=== PATIENT | male | born 1940 | race Caucasian/White ===

== ENCOUNTER 2017-08-22 17:45 | Inpatient (IN) | payer MEDICARE, OTHER ==
[~2017-08-22] VITALS: Ht 180.3 cm; Wt 77.9 kg
[~2017-08-22 17:45] MED LIST: 0.9 % SODIUM CHLORIDE 10 ML VIAL ONE; epiNEPHrine 0.1mg/ml 10ml syringe ONE; etomidate 2mg/ml inj. ONE; rocuronium 10mg/ml inj IV ONE; sodium bicarbonate (8.4%) 1 mEq/ml syringe ONE
[2017-08-22 18:35] LABS: BASOPHILS % (AUTO) 0.2 % (0-1); EOSINOPHILS % (AUTO) 0.3 % (0-6); HEMATOCRIT 45.8 % (42.0-52.0); HEMOGLOBIN 15.2 g/dl (14.0-17.9); LYMPHOCYTES # (AUTO) 1.4 X10'3 (1.1-4.8); LYMPHOCYTES % (AUTO) 16.8 % (21-51); MEAN CORPUSCULAR HGB CONC 33.3 % (33.0-36.5); MEAN CORPUSCULAR VOLUME 90.1 FL (78-98); MEAN PLATELET VOLUME 8.1 FL (7.4-10.4); MONOCYTES # (AUTO) 0.6 X10'3 (0-0.9); MONOCYTES % (AUTO) 6.8 % (2-12); NEUTROPHILS # (AUTO) 6.3 X10'3 (1.8-7.7); NEUTROPHILS % (AUTO) 75.9 % (42-75); PLATELET COUNT 284 X10'3 (140-440); RED BLOOD COUNT 5.08 X10'6 (4.70-6.10); RED CELL DISTRIBUTION WIDTH 15.7 % (11.5-14.5); WHITE BLOOD COUNT 8.3 X10'3 (4.5-11.0)
[2017-08-22] MEDS ORDERED: normal saline 1000ML IV soln IVB ONE ×2 (18:35→20:00)
[2017-08-22 18:47] LABS: PARTIAL THROMBOPLASTIN TIME 27 SECONDS (22-32); PROTHROMBIN TIME 10.5 SECONDS (9.0-12.0)
[2017-08-22 18:58] LABS: ALANINE AMINOTRANSFERASE 44 U/L (12-78); ALBUMIN 3.7 G/DL (3.4-5.0); ALKALINE PHOSPHATASE 72 IU/L (46-116); ANION GAP 6 (8-16); ASPARTATE AMINO TRANSFERASE 18 U/L (10-37); BILIRUBIN,TOTAL 0.4 MG/DL (0.1-1.0); BLOOD UREA NITROGEN 17 MG/DL (7-18); BUN/CREATININE RATIO 18.3 (5.4-32.0); CALCIUM 9.7 MG/DL (8.5-10.1); CHLORIDE 98 MMOL/L (99-107); CREATININE 0.93 MG/DL (0.60-1.10); GLUCOSE 126 MG/DL (70-104); POTASSIUM 4.1 MMOL/L (3.5-5.1); SODIUM 143 MMOL/L (135-145); TOTAL CARBON DIOXIDE 39.5 MMOL/L (24-32); TOTAL PROTEIN 7.5 G/DL (6.4-8.2); eGFR 79 ML/MIN
[2017-08-22] MEDS ORDERED: UMEC62.5 INH (20:23)
[2017-08-22] MEDS ORDERED: CITA20TA11 PO (20:23)
[2017-08-22] MEDS ORDERED: VALS1TAB77 PO (20:23)
[2017-08-22] MEDS ORDERED: CARV-50 PO (20:23)
[2017-08-22] MEDS ORDERED: DUTA0.5C40 PO (20:25)
[2017-08-22] MEDS ORDERED: RIVA20TA PO (20:25)
[2017-08-22] MEDS ORDERED: FLUT1AER INH (20:25)
[2017-08-22] MEDS ORDERED: ATOR40TA3 PO (20:25)
[2017-08-22 20:31] LABS: D-DIMER < 0.19 MG/L FEU (0-0.50)
[2017-08-22] MEDS ORDERED: ondansetron/PF 4mg/2ml inj IV PRN (22:50)
[2017-08-22] MEDS ORDERED: haloperidol 5mg tablet PO PRN (22:50)
[2017-08-22] MEDS ORDERED: magnesium hydroxide 30ml (MOM) UD suspension PO PRN (22:50)
[2017-08-22] MEDS ORDERED: magnesium 2GM in 50ml NS 50 ML IV PRN (22:50)
[2017-08-22] MEDS ORDERED: ipratropium/albuterol 3ml nebule NEB PRN (22:50)
[2017-08-22] MEDS ORDERED: mag hydrox/Alum hydrox/simeth 30ml oral suspension PO PRN (22:50)
[2017-08-22] MEDS ORDERED: potassium Cl 20 mEq SR tablet PO PRN ×2 (22:50)
[2017-08-22] MEDS ORDERED: magnesium 4gm in 100ml NS 100 ML IV PRN (22:50)
[2017-08-22] MEDS ORDERED: acetaminophen 325mg tablet PO PRN (22:50)
[2017-08-22] MEDS ORDERED: haloperidol lactate 5mg/ml inj IM PRN (22:50)
[2017-08-22] MEDS ORDERED: HYDROcodone/acetaminophen 10/325mg tab PO PRN (22:50)
[2017-08-22] MEDS ORDERED: LORazepam 1 MG tablet PO PRN (22:50)
[2017-08-22] MEDS ORDERED: magnesium Cl slow-release 64mg tablet PO PRN (22:50)
[2017-08-22] MEDS ORDERED: albuterol 2.5 MG/3 ML nebule NEB PRN (22:50)
[2017-08-22] MEDS ORDERED: potassium Cl 40MEQ/NS 500ml 500 ML IV PRN (22:50)
[2017-08-22] MEDS ORDERED: dextrose 50%-water 50ml dispensing syringe IV PRN (22:50)
[2017-08-22] MEDS ORDERED: LORazepam 2 mg/ml vial IV PRN (22:50)
[2017-08-22 23:16] LABS: CHOL/HDL RATIO 2.5 (0.00-4.99); CHOLESTEROL 171 MG/DL (0-200); HDL CHOLESTEROL 69 MG/DL (35-60); LDL CHOLESTEROL 79 MG/DL (50-100); TRIGLYCERIDES 171 MG/DL (20-135)
[2017-08-22] MEDS ORDERED: thiamine 100mg/ml 2ml inj. IV ONE (23:19)
[2017-08-22] MEDS: normal saline 1000ml 1,000 ML IV SCH (23:26)
[2017-08-23 07:15] LABS: BASOPHILS % (AUTO) 0.6 % (0-1); EOSINOPHILS # (AUTO) 0.1 X10'3 (0-0.9); EOSINOPHILS % (AUTO) 1.4 % (0-6); HEMATOCRIT 37.9 % (42.0-52.0); HEMOGLOBIN 12.6 g/dl (14.0-17.9); LYMPHOCYTES # (AUTO) 1.9 X10'3 (1.1-4.8); LYMPHOCYTES % (AUTO) 26.3 % (21-51); MEAN CORPUSCULAR HEMOGLOBIN 30.3 PG (27.0-31.0); MEAN CORPUSCULAR HGB CONC 33.4 % (33.0-36.5); MEAN CORPUSCULAR VOLUME 90.6 FL (78-98); MEAN PLATELET VOLUME 8.5 FL (7.4-10.4); MONOCYTES # (AUTO) 0.5 X10'3 (0-0.9); MONOCYTES % (AUTO) 7.3 % (2-12); NEUTROPHILS # (AUTO) 4.6 X10'3 (1.8-7.7); NEUTROPHILS % (AUTO) 64.4 % (42-75); PLATELET COUNT 148 X10'3 (140-440); RED BLOOD COUNT 4.18 X10'6 (4.70-6.10); RED CELL DISTRIBUTION WIDTH 15.1 % (11.5-14.5); WHITE BLOOD COUNT 7.1 X10'3 (4.5-11.0)
[2017-08-23] MEDS ORDERED: non-formulary drug (Valsartan/Hydrochlorothiazide (Valsartan-Hctz 160-25 Mg Tab) 1 TAB) PO SCH (08:00)
[2017-08-23] MEDS: citalopram 20mg tablet PO SCH (09:09)
[2017-08-23] MEDS: carVEDilol 3.125mg tablet PO SCH ×2 (09:09→20:00)
[2017-08-23] MEDS: HYDROchlorothiazide 25mg tablet PO SCH (09:09)
[2017-08-23] MEDS: K and/or MAG REPLACEMENT MC SCH (09:09)
[2017-08-23 09:36] LABS: ALBUMIN 3.2 G/DL (3.4-5.0); ANION GAP 4 (8-16); BLOOD UREA NITROGEN 13 MG/DL (7-18); BUN/CREATININE RATIO 14.9 (5.4-32.0); CALCIUM 8.6 MG/DL (8.5-10.1); CHLORIDE 103 MMOL/L (99-107); CHOL/HDL RATIO 2.3 (0.00-4.99); CHOLESTEROL 176 MG/DL (0-200); CREATININE 0.87 MG/DL (0.60-1.10); GLUCOSE 157 MG/DL (70-104); HDL CHOLESTEROL 77 MG/DL (35-60); LDL CHOLESTEROL 83 MG/DL (50-100); MAGNESIUM 1.8 MG/DL (1.5-2.4); POTASSIUM 3.5 MMOL/L (3.5-5.1); SODIUM 145 MMOL/L (135-145); TOTAL CARBON DIOXIDE 38.4 MMOL/L (24-32); TRIGLYCERIDES 118 MG/DL (20-135); eGFR 85 ML/MIN
[2017-08-23] MEDS: normal saline 1000ml 1,000 ML IV SCH ×2 (10:24→17:04)
[2017-08-23 13:20] VITALS: BP 121/79
[2017-08-23] MEDS: cloNIDine 0.1 mg tablet PO SCH ×2 (17:54→21:00)
[2017-08-23 18:00] VITALS: BP 196/110
[2017-08-23] MEDS ORDERED: flumazenil 0.1 mg/ml inj. IV ONE ×3 (18:57→19:10)
[2017-08-23] MEDS ORDERED: propofol 1000mg/100ml bottle 100 ML IV ONE ×3 (18:58→19:10)
[2017-08-23] MEDS ORDERED: propofol 1000mg/100ml bottle 100 ML IV SCH (19:00)
[2017-08-23 19:26] LABS: BASOPHILS # (AUTO) 0.1 X10'3 (0-0.2); BASOPHILS % (AUTO) 0.7 % (0-1); EOSINOPHILS # (AUTO) 0.2 X10'3 (0-0.9); EOSINOPHILS % (AUTO) 2.3 % (0-6); HEMATOCRIT 43.5 % (42.0-52.0); HEMOGLOBIN 14.3 g/dl (14.0-17.9); LYMPHOCYTES # (AUTO) 3.1 X10'3 (1.1-4.8); LYMPHOCYTES % (AUTO) 29.6 % (21-51); MEAN CORPUSCULAR HEMOGLOBIN 30.1 PG (27.0-31.0); MEAN CORPUSCULAR HGB CONC 32.9 % (33.0-36.5); MEAN CORPUSCULAR VOLUME 91.4 FL (78-98); MEAN PLATELET VOLUME 7.7 FL (7.4-10.4); MONOCYTES # (AUTO) 0.8 X10'3 (0-0.9); MONOCYTES % (AUTO) 7.5 % (2-12); NEUTROPHILS # (AUTO) 6.2 X10'3 (1.8-7.7); NEUTROPHILS % (AUTO) 59.9 % (42-75); PLATELET COUNT 235 X10'3 (140-440); RED BLOOD COUNT 4.76 X10'6 (4.70-6.10); RED CELL DISTRIBUTION WIDTH 15.5 % (11.5-14.5); WHITE BLOOD COUNT 10.3 X10'3 (4.5-11.0)
[2017-08-23 19:47] LABS: ALANINE AMINOTRANSFERASE 38 U/L (12-78); ALBUMIN 3.4 G/DL (3.4-5.0); ALKALINE PHOSPHATASE 64 IU/L (46-116); ANION GAP 6 (8-16); ASPARTATE AMINO TRANSFERASE 20 U/L (10-37); BILIRUBIN,TOTAL 0.6 MG/DL (0.1-1.0); BLOOD UREA NITROGEN 14 MG/DL (7-18); BUN/CREATININE RATIO 12.7 (5.4-32.0); CALCIUM 8.6 MG/DL (8.5-10.1); CHLORIDE 101 MMOL/L (99-107); CREATINE KINASE 75 U/L (39-308); GLUCOSE 189 MG/DL (70-104); SODIUM 144 MMOL/L (135-145); TOTAL CARBON DIOXIDE 36.9 MMOL/L (24-32); TOTAL PROTEIN 6.8 G/DL (6.4-8.2); TROPONIN I 0.05 NG/ML (0.0-0.05); eGFR 65 ML/MIN
[2017-08-23 19:52] LABS: POTASSIUM 3.4 MMOL/L (3.5-5.1)
[2017-08-23 20:00] VITALS: BP 189/113
[2017-08-23 20:21] LABS: ABG BASE EXCESS 5.9 mmol/L (-2.0-3.0); ABG HCO3 32.8 mmol/L (22.0-26.0); ABG OXYGEN SATURATION 99.3 % (95-98); ABG PCO2 (T) 55.6 mmHg (35.0-48.0); ABG PH (T) 7.387 (7.350-7.450); ABG PO2 (T) 302.6 mmHg (83-108); ALLEN'S TEST Positive; FCOHb 0.5 % (0.5-1.5); FMetHb 0.4 % (0.3-1.12); FO2Hb 98.4 % (94-100); MINUTE VOLUME 5 L/min; PATIENT TEMPERATURE 36.5; PEEP 5 cm H2O; RESPIRATORY RATE 12 b/min; RESPIRATORY RATE (OBSERVED) 12 b/min; TIDAL VOLUME 400 mL; TOTAL HEMOGLOBIN 14.7 G/dl (14.0-18.0)
[2017-08-23 21:00] VITALS: BP 109/61
[2017-08-23] MEDS: finasteride 5mg tablet PO SCH (21:00)
[2017-08-23 22:00] VITALS: BP 150/75
[2017-08-23] MEDS: rivaroxaban 20mg tablet PO SCH (22:20)
[2017-08-23] MEDS: atorvastatin 10mg tablet PO SCH (22:20)
[2017-08-23 23:00] VITALS: BP 120/59
[2017-08-24] VITALS (24 sets, daily range): BP systolic 89–154; BP diastolic 38–82
[2017-08-24] MEDS ORDERED: potassium Cl oral solution 20 MEQ/15 ML OGT PRN ×2 (00:50)
[2017-08-24 02:06] LABS: BASOPHILS % (AUTO) 0.3 % (0-1); EOSINOPHILS # (AUTO) 0.2 X10'3 (0-0.9); HEMATOCRIT 38.7 % (42.0-52.0); HEMOGLOBIN 12.8 g/dl (14.0-17.9); LYMPHOCYTES # (AUTO) 1.8 X10'3 (1.1-4.8); LYMPHOCYTES % (AUTO) 18.8 % (21-51); MEAN CORPUSCULAR HEMOGLOBIN 29.8 PG (27.0-31.0); MEAN CORPUSCULAR VOLUME 90.2 FL (78-98); MEAN PLATELET VOLUME 7.7 FL (7.4-10.4); MONOCYTES # (AUTO) 0.7 X10'3 (0-0.9); MONOCYTES % (AUTO) 7.6 % (2-12); NEUTROPHILS # (AUTO) 6.9 X10'3 (1.8-7.7); NEUTROPHILS % (AUTO) 71.3 % (42-75); PLATELET COUNT 199 X10'3 (140-440); RED CELL DISTRIBUTION WIDTH 15.6 % (11.5-14.5); WHITE BLOOD COUNT 9.6 X10'3 (4.5-11.0)
[2017-08-24] MEDS: propofol 1000mg/100ml bottle 100 ML IV PRN ×2 (02:18→12:57)
[2017-08-24] MEDS: normal saline 1000ml 1,000 ML IV SCH ×2 (02:19→12:19)
[2017-08-24 02:25] LABS: ALANINE AMINOTRANSFERASE 32 U/L (12-78); ALBUMIN/GLOBULIN RATIO 1.1 (1.1-1.5); ALKALINE PHOSPHATASE 52 IU/L (46-116); ANION GAP 3 (8-16); ASPARTATE AMINO TRANSFERASE 19 U/L (10-37); BILIRUBIN,TOTAL 0.7 MG/DL (0.1-1.0); BLOOD UREA NITROGEN 16 MG/DL (7-18); CALCIUM 8.3 MG/DL (8.5-10.1); CHLORIDE 103 MMOL/L (99-107); CREATININE 0.84 MG/DL (0.60-1.10); GLUCOSE 138 MG/DL (70-104); MAGNESIUM 1.7 MG/DL (1.5-2.4); PHOSPHORUS 3.2 MG/DL (2.3-4.5); POTASSIUM 3.6 MMOL/L (3.5-5.1); SODIUM 143 MMOL/L (135-145); TOTAL CARBON DIOXIDE 37.3 MMOL/L (24-32); TOTAL PROTEIN 5.8 G/DL (6.4-8.2); eGFR 89 ML/MIN
[2017-08-24 02:39] LABS: TROPONIN I 0.36 NG/ML (0.0-0.05)
[2017-08-24 03:11] LABS: ABG BASE EXCESS 2.5 mmol/L (-2.0-3.0); ABG HCO3 26.3 mmol/L (22.0-26.0); ABG PCO2 (T) 39.6 mmHg (35.0-48.0); ABG PH (T) 7.444 (7.350-7.450); ABG PO2 (T) 123.5 mmHg (83-108); ALLEN'S TEST Positive; FCOHb 0.3 % (0.5-1.5); FMetHb 0.2 % (0.3-1.12); FO2Hb 97.5 % (94-100); MINUTE VOLUME 6 L/min; PATIENT TEMPERATURE 38.2; PEEP 5 cm H2O; RESPIRATORY RATE 14 b/min; RESPIRATORY RATE (OBSERVED) 14 b/min; TIDAL VOLUME 400 mL; TOTAL HEMOGLOBIN 13.1 G/dl (14.0-18.0)
[2017-08-24] MEDS: cloNIDine 0.1 mg tablet PO SCH ×3 (08:00→20:31)
[2017-08-24] MEDS: citalopram 20mg tablet PO SCH (08:00)
[2017-08-24] MEDS: K and/or MAG REPLACEMENT MC SCH (08:00)
[2017-08-24] MEDS: carVEDilol 3.125mg tablet PO SCH ×2 (08:00→20:31)
[2017-08-24] MEDS: HYDROchlorothiazide 25mg tablet PO SCH (08:00)
[2017-08-24 08:01] LABS: BASOPHILS % (AUTO) 0.3 % (0-1); EOSINOPHILS # (AUTO) 0.2 X10'3 (0-0.9); EOSINOPHILS % (AUTO) 1.9 % (0-6); HEMATOCRIT 39.2 % (42.0-52.0); HEMOGLOBIN 13.2 g/dl (14.0-17.9); LYMPHOCYTES # (AUTO) 1.6 X10'3 (1.1-4.8); LYMPHOCYTES % (AUTO) 17.3 % (21-51); MEAN CORPUSCULAR HEMOGLOBIN 30.2 PG (27.0-31.0); MEAN CORPUSCULAR HGB CONC 33.6 % (33.0-36.5); MEAN PLATELET VOLUME 7.9 FL (7.4-10.4); MONOCYTES # (AUTO) 0.8 X10'3 (0-0.9); MONOCYTES % (AUTO) 9.4 % (2-12); NEUTROPHILS # (AUTO) 6.4 X10'3 (1.8-7.7); NEUTROPHILS % (AUTO) 71.1 % (42-75); PLATELET COUNT 189 X10'3 (140-440); RED BLOOD COUNT 4.36 X10'6 (4.70-6.10); RED CELL DISTRIBUTION WIDTH 15.4 % (11.5-14.5)
[2017-08-24 08:23] LABS: ANION GAP 7 (8-16); BLOOD UREA NITROGEN 14 MG/DL (7-18); BUN/CREATININE RATIO 19.7 (5.4-32.0); CALCIUM 8.2 MG/DL (8.5-10.1); CHLORIDE 104 MMOL/L (99-107); CREATININE 0.71 MG/DL (0.60-1.10); GLUCOSE 101 MG/DL (70-104); POTASSIUM 3.2 MMOL/L (3.5-5.1); SODIUM 145 MMOL/L (135-145); TOTAL CARBON DIOXIDE 34.2 MMOL/L (24-32); eGFR > 90 ML/MIN
[2017-08-24 08:25] LABS: TROPONIN I 0.23 NG/ML (0.0-0.05)
[2017-08-24] MEDS ORDERED: fentaNYL/NS/PF 2,500mcg/250ml 250 ML IV PRN (11:15)
[2017-08-24] MEDS ORDERED: midazolam 100mg in NS 100ml 100 ML IV PRN (11:15)
[2017-08-24] MEDS: piperacillin/tazo 3.375gm/50ml 50 ML IV SCH ×2 (14:00→20:32)
[2017-08-24] MEDS: methylPREDNISolone sod succ 125mg/2ml vial IV SCH ×2 (15:39→20:32)
[2017-08-24] MEDS: atorvastatin 10mg tablet PO SCH (20:31)
[2017-08-24] MEDS: rivaroxaban 20mg tablet PO SCH (20:31)
[2017-08-24] MEDS: finasteride 5mg tablet PO SCH (20:33)
[2017-08-24] MEDS: mineral oil/petrolatum ophthal oint EACHEYE SCH (21:06)
[2017-08-25] VITALS (24 sets, daily range): BP systolic 99–186; BP diastolic 50–87
[2017-08-25] MEDS: mineral oil/petrolatum ophthal oint EACHEYE SCH ×4 (03:07→19:47)
[2017-08-25] MEDS: piperacillin/tazo 3.375gm/50ml 50 ML IV SCH ×4 (03:07→19:47)
[2017-08-25] MEDS: methylPREDNISolone sod succ 125mg/2ml vial IV SCH ×4 (03:07→19:47)
[2017-08-25 03:55] LABS: ABG BASE EXCESS 3.6 mmol/L (-2.0-3.0); ABG HCO3 26.5 mmol/L (22.0-26.0); ABG OXYGEN SATURATION 91.9 % (95-98); ABG PCO2 (T) 34.2 mmHg (35.0-48.0); ABG PH (T) 7.507 (7.350-7.450); ABG PO2 (T) 61.4 mmHg (83-108); ALLEN'S TEST Positive; FMetHb 0.2 % (0.3-1.12); FO2Hb 91.7 % (94-100); MINUTE VOLUME 8 L/min; PATIENT TEMPERATURE 36.9; PEEP 5 cm H2O; RESPIRATORY RATE 14 b/min; RESPIRATORY RATE (OBSERVED) 14 b/min; TIDAL VOLUME 573 mL; TOTAL HEMOGLOBIN 13.2 G/dl (14.0-18.0)
[2017-08-25 05:28] LABS: BASOPHILS % (AUTO) 0.1 % (0-1); EOSINOPHILS # (AUTO) 0.1 X10'3 (0-0.9); EOSINOPHILS % (AUTO) 0.8 % (0-6); HEMOGLOBIN 12.6 g/dl (14.0-17.9); LYMPHOCYTES # (AUTO) 0.5 X10'3 (1.1-4.8); LYMPHOCYTES % (AUTO) 5.9 % (21-51); MEAN CORPUSCULAR HEMOGLOBIN 30.4 PG (27.0-31.0); MEAN CORPUSCULAR HGB CONC 34.1 % (33.0-36.5); MEAN CORPUSCULAR VOLUME 89.1 FL (78-98); MEAN PLATELET VOLUME 8.4 FL (7.4-10.4); MONOCYTES # (AUTO) 0.1 X10'3 (0-0.9); MONOCYTES % (AUTO) 1.4 % (2-12); NEUTROPHILS # (AUTO) 7.3 X10'3 (1.8-7.7); NEUTROPHILS % (AUTO) 91.8 % (42-75); PLATELET COUNT 166 X10'3 (140-440); RED BLOOD COUNT 4.16 X10'6 (4.70-6.10); RED CELL DISTRIBUTION WIDTH 15.8 % (11.5-14.5)
[2017-08-25 05:32] LABS: ALBUMIN 2.4 G/DL (3.4-5.0); ANION GAP 10 (8-16); BLOOD UREA NITROGEN 19 MG/DL (7-18); BUN/CREATININE RATIO 25.3 (5.4-32.0); CALCIUM 7.8 MG/DL (8.5-10.1); CHLORIDE 104 MMOL/L (99-107); CREATININE 0.75 MG/DL (0.60-1.10); GLUCOSE 151 MG/DL (70-104); MAGNESIUM 1.6 MG/DL (1.5-2.4); SODIUM 141 MMOL/L (135-145); TOTAL CARBON DIOXIDE 26.7 MMOL/L (24-32); eGFR > 90 ML/MIN
[2017-08-25 05:36] LABS: POTASSIUM 2.9 MMOL/L (3.5-5.1)
[2017-08-25] MEDS: normal saline 1000ml 1,000 ML IV SCH (07:13)
[2017-08-25] MEDS: potassium Cl 40MEQ/NS 500ml 500 ML IV PRN ×2 (07:14→11:10)
[2017-08-25] MEDS ORDERED: furosemide 40mg/4ml inj IV ONE (08:05)
[2017-08-25] MEDS: citalopram 20mg tablet PO SCH (08:36)
[2017-08-25] MEDS: K and/or MAG REPLACEMENT MC SCH (08:38)
[2017-08-25] MEDS: hydrALAZINE 25 MG tablet PO SCH ×3 (08:46→19:47)
[2017-08-25 18:13] LABS: POTASSIUM 3.7 MMOL/L (3.5-5.1)
[2017-08-25] MEDS: lactobacillus rhamnosus 10,000 MMU CELLS/CAPSULE PO SCH (19:47)
[2017-08-25] MEDS: rivaroxaban 20mg tablet PO SCH (20:35)
[2017-08-25] MEDS: atorvastatin 20mg tablet PO SCH (20:35)
[2017-08-25] MEDS: finasteride 5mg tablet PO SCH (20:35)
[2017-08-25] MEDS ORDERED: dextrose ORAL solution 15 GM/59 ML bottle PO PRN (20:55)
[2017-08-25] MEDS ORDERED: MESSAGE TO PHARMACY PO ONE (20:55)
[2017-08-25] MEDS ORDERED: glucagon, human recombinant 1mg kit SUBCUT PRN (20:55)
[2017-08-25] MEDS ORDERED: dextrose 50%-water 50ml dispensing syringe IV PRN ×2 (20:55)
[2017-08-25] MEDS ORDERED: insulin glargine (Lantus) pen - multi-dose SQ ONE (21:22)
[2017-08-25] MEDS ORDERED: insulin regular, human vial - multi-dose ONE (21:22)
[2017-08-25 21:29] LABS: HEMOGLOBIN A1C 6.9 % (4.5-6.2)
[2017-08-25] MEDS: insulin glargine (Lantus) pen - multi-dose SQ SCH (21:48)
[2017-08-25] MEDS: insulin regular, human vial - multi-dose SQ SCH (21:50)
[2017-08-26] VITALS (22 sets, daily range): BP systolic 132–200; BP diastolic 63–98
[2017-08-26] MEDS: piperacillin/tazo 3.375gm/50ml 50 ML IV SCH ×4 (02:21→20:21)
[2017-08-26] MEDS: mineral oil/petrolatum ophthal oint EACHEYE SCH ×2 (02:21→07:13)
[2017-08-26] MEDS: methylPREDNISolone sod succ 125mg/2ml vial IV SCH ×2 (02:21→07:14)
[2017-08-26] MEDS: hydrALAZINE 25 MG tablet PO SCH ×3 (02:21→20:22)
[2017-08-26] MEDS: insulin regular, human vial - multi-dose SQ SCH ×2 (02:23→07:41)
[2017-08-26 03:10] LABS: ABG BASE EXCESS 0.9 mmol/L (-2.0-3.0); ABG HCO3 24.2 mmol/L (22.0-26.0); ABG OXYGEN SATURATION 94.2 % (95-98); ABG PCO2 (T) 34.8 mmHg (35.0-48.0); ABG PH (T) 7.461 (7.350-7.450); ABG PO2 (T) 73.6 mmHg (83-108); ALLEN'S TEST Positive; FCOHb 0.3 % (0.5-1.5); FMetHb 0.2 % (0.3-1.12); FO2Hb 93.7 % (94-100); PATIENT TEMPERATURE 37.1; PEEP 5 cm H2O; RESPIRATORY RATE (OBSERVED) 18 b/min; TOTAL HEMOGLOBIN 13.1 G/dl (14.0-18.0)
[2017-08-26] MEDS: HYDROcodone/acetaminophen 5mg/325mg tablet PO PRN (04:30)
[2017-08-26 05:18] LABS: BASOPHILS % (AUTO) 0 % (0-1); EOSINOPHILS % (AUTO) 0 % (0-6); HEMATOCRIT 37.4 % (42.0-52.0); HEMOGLOBIN 12.7 g/dl (14.0-17.9); LYMPHOCYTES # (AUTO) 0.3 X10'3 (1.1-4.8); LYMPHOCYTES % (AUTO) 2.2 % (21-51); MEAN CORPUSCULAR HEMOGLOBIN 30.1 PG (27.0-31.0); MEAN CORPUSCULAR HGB CONC 33.9 % (33.0-36.5); MEAN PLATELET VOLUME 8.4 FL (7.4-10.4); MONOCYTES # (AUTO) 0.5 X10'3 (0-0.9); NEUTROPHILS # (AUTO) 12.2 X10'3 (1.8-7.7); NEUTROPHILS % (AUTO) 93.8 % (42-75); PLATELET COUNT 199 X10'3 (140-440); RED CELL DISTRIBUTION WIDTH 15.7 % (11.5-14.5)
[2017-08-26 05:58] LABS: ALBUMIN 2.5 G/DL (3.4-5.0); ANION GAP 10 (8-16); BLOOD UREA NITROGEN 26 MG/DL (7-18); BUN/CREATININE RATIO 32.9 (5.4-32.0); CALCIUM 8.3 MG/DL (8.5-10.1); CHLORIDE 109 MMOL/L (99-107); CREATININE 0.79 MG/DL (0.60-1.10); GLUCOSE 189 MG/DL (70-104); MAGNESIUM 2.1 MG/DL (1.5-2.4); POTASSIUM 3.5 MMOL/L (3.5-5.1); PREALBUMIN 15.4 MG/DL (19-36); SODIUM 145 MMOL/L (135-145); TOTAL CARBON DIOXIDE 26.5 MMOL/L (24-32); eGFR > 90 ML/MIN
[2017-08-26] MEDS: K and/or MAG REPLACEMENT MC SCH (07:00)
[2017-08-26] MEDS: citalopram 20mg tablet PO SCH (07:15)
[2017-08-26] MEDS: lactobacillus rhamnosus 10,000 MMU CELLS/CAPSULE PO SCH ×2 (07:15→20:22)
[2017-08-26] MEDS: HYDROchlorothiazide 12.5mg capsule PO SCH (07:17)
[2017-08-26] MEDS ORDERED: potassium Cl 20 mEq SR tablet PO PRN (11:33)
[2017-08-26] MEDS ORDERED: hydrALAZINE 25 MG tablet PO SCH (14:00)
[2017-08-26] MEDS ORDERED: nitroGLYCERIN-Tridil 50MG/D5W 250 ML IV SCH (15:10)
[2017-08-26] MEDS ORDERED: nitroGLYCERIN-Tridil 50MG/D5W 250 ML IV PRN (18:32)
[2017-08-26] MEDS: finasteride 5mg tablet PO SCH (20:22)
[2017-08-26] MEDS: atorvastatin 20mg tablet PO SCH (20:22)
[2017-08-26] MEDS: insulin glargine (Lantus) pen - multi-dose SQ SCH (20:30)
[2017-08-26] MEDS: rivaroxaban 20mg tablet PO SCH (21:43)
[2017-08-26] MEDS: insulin Lispro (HumaLOG) vial - multi-dose SQ SCH (21:56)
[2017-08-27] VITALS (26 sets, daily range): BP systolic 129–189; BP diastolic 59–96
[2017-08-27] MEDS: ipratropium/albuterol 3ml nebule NEB PRN (00:18)
[2017-08-27] MEDS: hydrALAZINE 25 MG tablet PO SCH ×4 (02:06→19:43)
[2017-08-27] MEDS: piperacillin/tazo 3.375gm/50ml 50 ML IV SCH ×4 (02:06→19:43)
[2017-08-27 06:01] LABS: BASOPHILS % (AUTO) 0 % (0-1); EOSINOPHILS # (AUTO) 0.2 X10'3 (0-0.9); HEMATOCRIT 38.6 % (42.0-52.0); LYMPHOCYTES # (AUTO) 0.4 X10'3 (1.1-4.8); LYMPHOCYTES % (AUTO) 2.1 % (21-51); MEAN CORPUSCULAR HEMOGLOBIN 30.3 PG (27.0-31.0); MEAN CORPUSCULAR HGB CONC 33.7 % (33.0-36.5); MEAN CORPUSCULAR VOLUME 89.8 FL (78-98); MEAN PLATELET VOLUME 8.4 FL (7.4-10.4); MONOCYTES # (AUTO) 0.9 X10'3 (0-0.9); MONOCYTES % (AUTO) 5.2 % (2-12); NEUTROPHILS # (AUTO) 15.6 X10'3 (1.8-7.7); NEUTROPHILS % (AUTO) 91.7 % (42-75); PLATELET COUNT 235 X10'3 (140-440); RED CELL DISTRIBUTION WIDTH 16.4 % (11.5-14.5)
[2017-08-27 06:13] LABS: ALBUMIN 2.7 G/DL (3.4-5.0); ANION GAP 7 (8-16); BLOOD UREA NITROGEN 25 MG/DL (7-18); BUN/CREATININE RATIO 33.3 (5.4-32.0); CALCIUM 8.7 MG/DL (8.5-10.1); CHLORIDE 109 MMOL/L (99-107); CREATININE 0.75 MG/DL (0.60-1.10); GLUCOSE 148 MG/DL (70-104); MAGNESIUM 2.2 MG/DL (1.5-2.4); POTASSIUM 3.9 MMOL/L (3.5-5.1); SODIUM 147 MMOL/L (135-145); TOTAL CARBON DIOXIDE 30.6 MMOL/L (24-32); eGFR > 90 ML/MIN
[2017-08-27] MEDS: K and/or MAG REPLACEMENT MC SCH (08:00)
[2017-08-27] MEDS ORDERED: methylPREDNISolone sod succ/PF 40mg inj. IV SCH (08:00)
[2017-08-27] MEDS: lactobacillus rhamnosus 10,000 MMU CELLS/CAPSULE PO SCH ×2 (08:43→19:43)
[2017-08-27] MEDS: HYDROchlorothiazide 12.5mg capsule PO SCH (08:43)
[2017-08-27] MEDS: citalopram 20mg tablet PO SCH (08:43)
[2017-08-27] MEDS: potassium Cl 20 mEq SR tablet PO PRN ×2 (08:44→14:29)
[2017-08-27] MEDS: insulin Lispro (HumaLOG) vial - multi-dose SQ SCH ×2 (09:11→13:22)
[2017-08-27] MEDS ORDERED: furosemide 40mg/4ml inj IV ONE (09:30)
[2017-08-27] MEDS: hydrALAZINE 20mg/ml inj. IV PRN (14:38)
[2017-08-27] MEDS: methylPREDNISolone sod succ/PF 40mg inj. IV SCH (16:52)
[2017-08-27] MEDS: finasteride 5mg tablet PO SCH (20:42)
[2017-08-27] MEDS: rivaroxaban 20mg tablet PO SCH (20:42)
[2017-08-27] MEDS: atorvastatin 20mg tablet PO SCH (20:43)
[2017-08-27] MEDS: insulin glargine (Lantus) pen - multi-dose SQ SCH (20:46)
[2017-08-28] VITALS (22 sets, daily range): BP systolic 100–213; BP diastolic 52–105
[2017-08-28] MEDS: methylPREDNISolone sod succ/PF 40mg inj. IV SCH ×3 (00:52→15:41)
[2017-08-28] MEDS: ipratropium/albuterol 3ml nebule NEB PRN (01:39)
[2017-08-28] MEDS: hydrALAZINE 25 MG tablet PO SCH ×4 (03:07→19:54)
[2017-08-28] MEDS: piperacillin/tazo 3.375gm/50ml 50 ML IV SCH ×4 (03:08→19:53)
[2017-08-28 08:02] LABS: BASOPHILS % (AUTO) 0 % (0-1); EOSINOPHILS # (AUTO) 0.2 X10'3 (0-0.9); EOSINOPHILS % (AUTO) 1.2 % (0-6); HEMATOCRIT 40.8 % (42.0-52.0); HEMOGLOBIN 13.6 g/dl (14.0-17.9); LYMPHOCYTES # (AUTO) 0.2 X10'3 (1.1-4.8); LYMPHOCYTES % (AUTO) 1.3 % (21-51); MEAN CORPUSCULAR HEMOGLOBIN 30.2 PG (27.0-31.0); MEAN CORPUSCULAR HGB CONC 33.3 % (33.0-36.5); MEAN CORPUSCULAR VOLUME 90.5 FL (78-98); MEAN PLATELET VOLUME 8.3 FL (7.4-10.4); MONOCYTES # (AUTO) 0.8 X10'3 (0-0.9); MONOCYTES % (AUTO) 5.6 % (2-12); NEUTROPHILS # (AUTO) 12.5 X10'3 (1.8-7.7); NEUTROPHILS % (AUTO) 91.9 % (42-75); PLATELET COUNT 207 X10'3 (140-440); RED BLOOD COUNT 4.51 X10'6 (4.70-6.10); RED CELL DISTRIBUTION WIDTH 16.3 % (11.5-14.5); WHITE BLOOD COUNT 13.6 X10'3 (4.5-11.0)
[2017-08-28 08:12] LABS: ALANINE AMINOTRANSFERASE 36 U/L (12-78); ALBUMIN/GLOBULIN RATIO 0.8 (1.1-1.5); ALKALINE PHOSPHATASE 60 IU/L (46-116); ANION GAP 6 (8-16); ASPARTATE AMINO TRANSFERASE 23 U/L (10-37); BILIRUBIN,TOTAL 0.5 MG/DL (0.1-1.0); BLOOD UREA NITROGEN 31 MG/DL (7-18); BUN/CREATININE RATIO 34.8 (5.4-32.0); CALCIUM 8.9 MG/DL (8.5-10.1); CHLORIDE 101 MMOL/L (99-107); CREATININE 0.89 MG/DL (0.60-1.10); GLUCOSE 208 MG/DL (70-104); POTASSIUM 3.8 MMOL/L (3.5-5.1); SODIUM 142 MMOL/L (135-145); TOTAL CARBON DIOXIDE 34.7 MMOL/L (24-32); TOTAL PROTEIN 6.7 G/DL (6.4-8.2); eGFR 83 ML/MIN
[2017-08-28] MEDS: HYDROchlorothiazide 12.5mg capsule PO SCH (08:20)
[2017-08-28] MEDS: furosemide 20 MG/2 ML vial IV SCH (08:20)
[2017-08-28] MEDS: lactobacillus rhamnosus 10,000 MMU CELLS/CAPSULE PO SCH ×2 (08:21→19:54)
[2017-08-28] MEDS: potassium chloride 10mEq ER tablet PO SCH (08:21)
[2017-08-28] MEDS: citalopram 20mg tablet PO SCH (08:21)
[2017-08-28] MEDS: K and/or MAG REPLACEMENT MC SCH (08:52)
[2017-08-28] MEDS ORDERED: potassium Cl 40MEQ/NS 500ml 500 ML IV PRN ×2 (09:25)
[2017-08-28] MEDS ORDERED: magnesium 4gm in 100ml NS 100 ML IV PRN (09:25)
[2017-08-28] MEDS ORDERED: magnesium Cl slow-release 64mg tablet PO PRN (09:25)
[2017-08-28] MEDS ORDERED: magnesium 2GM in 50ml NS 50 ML IV PRN (09:25)
[2017-08-28] MEDS: insulin Lispro (HumaLOG) vial - multi-dose SQ SCH ×2 (09:31→14:05)
[2017-08-28] MEDS ORDERED: iohexol 350MG/ML 100ml bottle IV ONE (10:25)
[2017-08-28] MEDS: atorvastatin 20mg tablet PO SCH (19:54)
[2017-08-28] MEDS: temazepam 15mg capsule PO PRN (19:54)
[2017-08-28] MEDS: rivaroxaban 20mg tablet PO SCH (19:54)
[2017-08-28] MEDS: insulin glargine (Lantus) pen - multi-dose SQ SCH (21:09)
[2017-08-28] MEDS: finasteride 5mg tablet PO SCH (21:10)
[2017-08-28] MEDS: hydrALAZINE 20mg/ml inj. IV PRN (21:23)
[2017-08-29] VITALS (24 sets, daily range): BP systolic 68–144; BP diastolic 49–87
[2017-08-29] MEDS ORDERED: flumazenil 0.1 mg/ml inj. IV ONE (01:10)
[2017-08-29] MEDS: methylPREDNISolone sod succ/PF 40mg inj. IV SCH ×3 (01:25→20:50)
[2017-08-29 01:26] LABS: ABG OXYGEN SATURATION 76.5 % (95-98); ABG PH (T) 6.992 (7.350-7.450); ABG PO2 (T) 54.6 mmHg (83-108); FCOHb 0.4 % (0.5-1.5); FLOW 15 L/min; FMetHb 0.4 % (0.3-1.12); FO2Hb 75.9 % (94-100); PATIENT TEMPERATURE 36.1; RESPIRATORY RATE (OBSERVED) 18 b/min; TOTAL HEMOGLOBIN 13.9 G/dl (14.0-18.0)
[2017-08-29] MEDS ORDERED: epiNEPHrine 1 mg/ml inj IM STA (01:51)
[2017-08-29] MEDS ORDERED: rocuronium 10mg/ml inj IV ONE (01:55)
[2017-08-29] MEDS ORDERED: sodium bicarbonate (8.4%) 1 mEq/ml syringe IV ONE (01:55)
[2017-08-29] MEDS: hydrALAZINE 25 MG tablet PO SCH ×4 (02:00→20:50)
[2017-08-29] MEDS ORDERED: NORepinephrine 8mg/ 250ml NS 250 ML IV ONE (02:03)
[2017-08-29 02:05] LABS: ABG BASE EXCESS 7.8 mmol/L (-2.0-3.0); ABG HCO3 37.7 mmol/L (22.0-26.0); ABG OXYGEN SATURATION 97.6 % (95-98); ABG PCO2 (T) 79.6 mmHg (35.0-48.0); ABG PH (T) 7.289 (7.350-7.450); ABG PO2 (T) 107.3 mmHg (83-108); ALLEN'S TEST Positive; FMetHb 0.3 % (0.3-1.12); FO2Hb 97.3 % (94-100); MINUTE VOLUME 10 L/min; PATIENT TEMPERATURE 36.1; PEEP 5 cm H2O; RESPIRATORY RATE 20 b/min; RESPIRATORY RATE (OBSERVED) 20 b/min; TIDAL VOLUME 450 mL; TOTAL HEMOGLOBIN 13.3 G/dl (14.0-18.0)
[2017-08-29] MEDS: piperacillin/tazo 3.375gm/50ml 50 ML IV SCH ×2 (02:14→08:14)
[2017-08-29 05:16] LABS: ABG BASE EXCESS 10.9 mmol/L (-2.0-3.0); ABG HCO3 36.4 mmol/L (22.0-26.0); ABG OXYGEN SATURATION 79.6 % (95-98); ABG PCO2 (T) 48.7 mmHg (35.0-48.0); ABG PH (T) 7.487 (7.350-7.450); ALLEN'S TEST Positive; FCOHb 0.3 % (0.5-1.5); FMetHb 0.3 % (0.3-1.12); FO2Hb 79.1 % (94-100); MINUTE VOLUME 10 L/min; PATIENT TEMPERATURE 35.9; PEEP 5 cm H2O; RESPIRATORY RATE 20 b/min; RESPIRATORY RATE (OBSERVED) 20 b/min; TIDAL VOLUME 450 mL; TOTAL HEMOGLOBIN 13.1 G/dl (14.0-18.0)
[2017-08-29 05:56] LABS: ABG PCO2 (T) > 150.0 mmHg (35.0-48.0)
[2017-08-29] MEDS ORDERED: MIDAZolam 5mg/ml 2ml vial ONE (05:57)
[2017-08-29 05:58] LABS: BASOPHILS % (AUTO) 0 % (0-1); EOSINOPHILS # (AUTO) 0.1 X10'3 (0-0.9); EOSINOPHILS % (AUTO) 0.9 % (0-6); HEMATOCRIT 37.4 % (42.0-52.0); HEMOGLOBIN 12.4 g/dl (14.0-17.9); LYMPHOCYTES # (AUTO) 0.2 X10'3 (1.1-4.8); LYMPHOCYTES % (AUTO) 1.1 % (21-51); MEAN CORPUSCULAR HEMOGLOBIN 30.1 PG (27.0-31.0); MEAN CORPUSCULAR HGB CONC 33.3 % (33.0-36.5); MEAN CORPUSCULAR VOLUME 90.3 FL (78-98); MEAN PLATELET VOLUME 8.5 FL (7.4-10.4); MONOCYTES # (AUTO) 1.1 X10'3 (0-0.9); MONOCYTES % (AUTO) 6.9 % (2-12); NEUTROPHILS # (AUTO) 14.6 X10'3 (1.8-7.7); NEUTROPHILS % (AUTO) 91.1 % (42-75); PLATELET COUNT 235 X10'3 (140-440); RED BLOOD COUNT 4.14 X10'6 (4.70-6.10); RED CELL DISTRIBUTION WIDTH 16.2 % (11.5-14.5)
[2017-08-29 06:03] LABS: MAGNESIUM 2.3 MG/DL (1.5-2.4); PREALBUMIN 19.9 MG/DL (19-36)
[2017-08-29] MEDS: HYDROchlorothiazide 12.5mg capsule PO SCH (08:00)
[2017-08-29] MEDS: furosemide 20 MG/2 ML vial IV SCH (08:00)
[2017-08-29 08:01] LABS: ABG BASE EXCESS 13.2 mmol/L (-2.0-3.0); ABG OXYGEN SATURATION 96.9 % (95-98); ABG PCO2 (T) 43.7 mmHg (35.0-48.0); ABG PH (T) 7.546 (7.350-7.450); ABG PO2 (T) 80.5 mmHg (83-108); ALLEN'S TEST Positive; FCOHb 0.3 % (0.5-1.5); FMetHb 0.2 % (0.3-1.12); FO2Hb 96.4 % (94-100); MINUTE VOLUME 9 L/min; PEEP 8 cm H2O; RESPIRATORY RATE 20 b/min; RESPIRATORY RATE (OBSERVED) 20 b/min; TIDAL VOLUME 450 mL; TOTAL HEMOGLOBIN 12.8 G/dl (14.0-18.0)
[2017-08-29] MEDS: K and/or MAG REPLACEMENT MC SCH (08:44)
[2017-08-29] MEDS: potassium chloride 10mEq ER tablet PO SCH (08:49)
[2017-08-29] MEDS: lactobacillus rhamnosus 10,000 MMU CELLS/CAPSULE PO SCH ×2 (08:50→20:50)
[2017-08-29] MEDS: citalopram 20mg tablet PO SCH (08:50)
[2017-08-29] MEDS: FENTANYL-0.9 % NACL/PF 100 ML IV PRN ×2 (09:23→16:55)
[2017-08-29] MEDS: insulin Lispro (HumaLOG) vial - multi-dose SQ SCH ×2 (09:27→22:10)
[2017-08-29] MEDS: cefepime 2g/NS 100ml ADVANTAGE 100 ML IV SCH ×2 (14:10→19:45)
[2017-08-29] MEDS: linezolid 600mg/300ml PREMIX 300 ML IV SCH ×2 (15:22→20:51)
[2017-08-29] MEDS ORDERED: methylPREDNISolone sod succ/PF 40mg inj. IV SCH (16:00)
[2017-08-29] MEDS: atorvastatin 20mg tablet PO SCH (20:50)
[2017-08-29] MEDS: rivaroxaban 20mg tablet PO SCH (20:51)
[2017-08-29] MEDS: finasteride 5mg tablet PO SCH (20:51)
[2017-08-29] MEDS: morphine 4 MG/ML inj SYRINge IV PRN (21:29)
[2017-08-29] MEDS: insulin glargine (Lantus) pen - multi-dose SQ SCH (22:08)
[2017-08-30] VITALS (24 sets, daily range): BP systolic 74–129; BP diastolic 52–81
[2017-08-30] MEDS: hydrALAZINE 25 MG tablet PO SCH ×5 (02:25→20:36)
[2017-08-30] MEDS: insulin Lispro (HumaLOG) vial - multi-dose SQ SCH (02:29)
[2017-08-30 02:41] LABS: ABG BASE EXCESS 16.2 mmol/L (-2.0-3.0); ABG HCO3 41.3 mmol/L (22.0-26.0); ABG OXYGEN SATURATION 96.7 % (95-98); ABG PH (T) 7.526 (7.350-7.450); ABG PO2 (T) 89.7 mmHg (83-108); ALLEN'S TEST Positive; FCOHb 0.1 % (0.5-1.5); FMetHb 0.1 % (0.3-1.12); FO2Hb 96.5 % (94-100); PEEP 8 cm H2O; RESPIRATORY RATE 14 b/min; RESPIRATORY RATE (OBSERVED) 14 b/min; TIDAL VOLUME 450 mL; TOTAL HEMOGLOBIN 12.8 G/dl (14.0-18.0)
[2017-08-30 06:04] LABS: BASOPHILS % (AUTO) 0 % (0-1); EOSINOPHILS % (AUTO) 0 % (0-6); HEMATOCRIT 36.1 % (42.0-52.0); HEMOGLOBIN 12.2 g/dl (14.0-17.9); LYMPHOCYTES # (AUTO) 0.3 X10'3 (1.1-4.8); LYMPHOCYTES % (AUTO) 2.2 % (21-51); MEAN CORPUSCULAR HEMOGLOBIN 30.3 PG (27.0-31.0); MEAN CORPUSCULAR HGB CONC 33.8 % (33.0-36.5); MEAN CORPUSCULAR VOLUME 89.4 FL (78-98); MEAN PLATELET VOLUME 8.7 FL (7.4-10.4); MONOCYTES # (AUTO) 0.6 X10'3 (0-0.9); MONOCYTES % (AUTO) 4.4 % (2-12); NEUTROPHILS # (AUTO) 12.4 X10'3 (1.8-7.7); NEUTROPHILS % (AUTO) 93.4 % (42-75); PLATELET COUNT 237 X10'3 (140-440); RED BLOOD COUNT 4.04 X10'6 (4.70-6.10); RED CELL DISTRIBUTION WIDTH 16.4 % (11.5-14.5); WHITE BLOOD COUNT 13.3 X10'3 (4.5-11.0)
[2017-08-30 06:17] LABS: ALANINE AMINOTRANSFERASE 42 U/L (12-78); ALBUMIN 2.3 G/DL (3.4-5.0); ALBUMIN/GLOBULIN RATIO 0.7 (1.1-1.5); ALKALINE PHOSPHATASE 52 IU/L (46-116); ANION GAP 0 (8-16); ASPARTATE AMINO TRANSFERASE 30 U/L (10-37); BILIRUBIN,TOTAL 0.3 MG/DL (0.1-1.0); BLOOD UREA NITROGEN 35 MG/DL (7-18); BUN/CREATININE RATIO 41.2 (5.4-32.0); CALCIUM 8.8 MG/DL (8.5-10.1); CHLORIDE 105 MMOL/L (99-107); CREATININE 0.85 MG/DL (0.60-1.10); GLUCOSE 84 MG/DL (70-104); MAGNESIUM 2.5 MG/DL (1.5-2.4); POTASSIUM 3.5 MMOL/L (3.5-5.1); SODIUM 147 MMOL/L (135-145); TOTAL PROTEIN 5.7 G/DL (6.4-8.2); eGFR 87 ML/MIN
[2017-08-30] MEDS ORDERED: NORepinephrine 8mg/ 250ml NS 250 ML IV SCH (07:00)
[2017-08-30] MEDS: furosemide 20 MG/2 ML vial IV SCH (07:15)
[2017-08-30] MEDS: HYDROchlorothiazide 12.5mg capsule PO SCH (07:16)
[2017-08-30] MEDS: HYDROcodone/acetaminophen 5mg/325mg tablet PO PRN (07:31)
[2017-08-30] MEDS: linezolid 600mg/300ml PREMIX 300 ML IV SCH ×2 (07:31→20:00)
[2017-08-30] MEDS: potassium chloride 10mEq ER tablet PO SCH (07:31)
[2017-08-30] MEDS: citalopram 20mg tablet PO SCH (07:31)
[2017-08-30] MEDS: lactobacillus rhamnosus 10,000 MMU CELLS/CAPSULE PO SCH ×2 (07:31→20:36)
[2017-08-30] MEDS: methylPREDNISolone sod succ/PF 40mg inj. IV SCH ×2 (07:32→20:35)
[2017-08-30 07:43] LABS: TOTAL CARBON DIOXIDE 42.1 MMOL/L (24-32)
[2017-08-30] MEDS: K and/or MAG REPLACEMENT MC SCH (08:19)
[2017-08-30] MEDS: cefepime 2g/NS 100ml ADVANTAGE 100 ML IV SCH ×2 (08:45→20:00)
[2017-08-30] MEDS: ipratropium/albuterol 3ml nebule NEB PRN (10:39)
[2017-08-30] MEDS ORDERED: morphine/NS 100mg/100ml bag 100 ML IV SCH (10:50)
[2017-08-30] MEDS: midazolam 100mg in NS 100ml 100 ML IV PRN (10:53)
[2017-08-30] MEDS: mineral oil/petrolatum ophthal oint EACHEYE SCH ×2 (13:35→20:00)
[2017-08-30] MEDS: insulin regular, human vial - multi-dose SQ SCH ×3 (13:37→21:05)
[2017-08-30] MEDS: morphine 4 MG/ML inj SYRINge IV PRN ×2 (16:23→16:51)
[2017-08-30] MEDS: finasteride 5mg tablet PO SCH (20:36)
[2017-08-30] MEDS: rivaroxaban 20mg tablet PO SCH (20:36)
[2017-08-30] MEDS: atorvastatin 20mg tablet PO SCH (20:36)
[2017-08-30] MEDS: insulin glargine (Lantus) pen - multi-dose SQ SCH (21:06)
[2017-08-31] VITALS (24 sets, daily range): BP systolic 82–148; BP diastolic 52–78
[2017-08-31] MEDS: hydrALAZINE 25 MG tablet PO SCH ×3 (02:00→13:51)
[2017-08-31] MEDS: mineral oil/petrolatum ophthal oint EACHEYE SCH ×4 (02:00→20:00)
[2017-08-31] MEDS: insulin regular, human vial - multi-dose SQ SCH ×4 (03:10→21:25)
[2017-08-31 03:16] LABS: ABG HCO3 36.7 mmol/L (22.0-26.0); ABG OXYGEN SATURATION 94.9 % (95-98); ABG PCO2 (T) 52.2 mmHg (35.0-48.0); ABG PH (T) 7.462 (7.350-7.450); ABG PO2 (T) 73.9 mmHg (83-108); ALLEN'S TEST Positive; FCOHb 0.2 % (0.5-1.5); FMetHb 0.3 % (0.3-1.12); FO2Hb 94.4 % (94-100); MINUTE VOLUME 6 L/min; PATIENT TEMPERATURE 36.4; PEEP 5 cm H2O; RESPIRATORY RATE 12 b/min; RESPIRATORY RATE (OBSERVED) 12 b/min; TIDAL VOLUME 450 mL; TOTAL HEMOGLOBIN 11.8 G/dl (14.0-18.0)
[2017-08-31 03:58] LABS: BASOPHILS % (AUTO) 0 % (0-1); EOSINOPHILS # (AUTO) 0.1 X10'3 (0-0.9); EOSINOPHILS % (AUTO) 0.9 % (0-6); HEMOGLOBIN 11.2 g/dl (14.0-17.9); LYMPHOCYTES # (AUTO) 0.3 X10'3 (1.1-4.8); LYMPHOCYTES % (AUTO) 3.1 % (21-51); MEAN CORPUSCULAR HEMOGLOBIN 30.1 PG (27.0-31.0); MEAN CORPUSCULAR HGB CONC 32.8 % (33.0-36.5); MEAN CORPUSCULAR VOLUME 91.5 FL (78-98); MEAN PLATELET VOLUME 8.8 FL (7.4-10.4); MONOCYTES # (AUTO) 0.3 X10'3 (0-0.9); MONOCYTES % (AUTO) 3.4 % (2-12); NEUTROPHILS # (AUTO) 9.4 X10'3 (1.8-7.7); NEUTROPHILS % (AUTO) 92.6 % (42-75); PLATELET COUNT 201 X10'3 (140-440); RED BLOOD COUNT 3.72 X10'6 (4.70-6.10); RED CELL DISTRIBUTION WIDTH 16.5 % (11.5-14.5); WHITE BLOOD COUNT 10.2 X10'3 (4.5-11.0)
[2017-08-31 04:14] LABS: ANION GAP 1 (8-16); BLOOD UREA NITROGEN 36 MG/DL (7-18); BUN/CREATININE RATIO 57.1 (5.4-32.0); CALCIUM 8.5 MG/DL (8.5-10.1); CHLORIDE 107 MMOL/L (99-107); CREATININE 0.63 MG/DL (0.60-1.10); GLUCOSE 100 MG/DL (70-104); MAGNESIUM 2.4 MG/DL (1.5-2.4); PHOSPHORUS 2.3 MG/DL (2.3-4.5); POTASSIUM 3.6 MMOL/L (3.5-5.1); SODIUM 147 MMOL/L (135-145); TOTAL CARBON DIOXIDE 39.2 MMOL/L (24-32); eGFR > 90 ML/MIN
[2017-08-31] MEDS: K and/or MAG REPLACEMENT MC SCH (08:00)
[2017-08-31] MEDS: ipratropium/albuterol 3ml nebule NEB PRN ×2 (08:19→11:30)
[2017-08-31] MEDS: cefepime 2g/NS 100ml ADVANTAGE 100 ML IV SCH ×2 (08:30→21:12)
[2017-08-31] MEDS: methylPREDNISolone sod succ/PF 40mg inj. IV SCH ×2 (08:30→21:15)
[2017-08-31] MEDS: furosemide 20 MG/2 ML vial IV SCH (08:30)
[2017-08-31] MEDS: lactobacillus rhamnosus 10,000 MMU CELLS/CAPSULE PO SCH ×2 (08:32→21:17)
[2017-08-31] MEDS: potassium chloride 10mEq ER tablet PO SCH (08:32)
[2017-08-31] MEDS: HYDROchlorothiazide 12.5mg capsule PO SCH (08:33)
[2017-08-31] MEDS: citalopram 20mg tablet PO SCH (08:33)
[2017-08-31] MEDS: linezolid 600mg/300ml PREMIX 300 ML IV SCH ×2 (09:27→21:14)
[2017-08-31] MEDS: pantoprazole 40 MG vial IV SCH (11:09)
[2017-08-31] MEDS: midazolam 100mg in NS 100ml 100 ML IV PRN (12:34)
[2017-08-31] MEDS ORDERED: diltiazem 30mg tablet PO SCH (17:00)
[2017-08-31] MEDS: finasteride 5mg tablet PO SCH (21:14)
[2017-08-31] MEDS: rivaroxaban 20mg tablet PO SCH (21:14)
[2017-08-31] MEDS: atorvastatin 20mg tablet PO SCH (21:14)
[2017-08-31] MEDS: insulin glargine (Lantus) pen - multi-dose SQ SCH (21:26)
[2017-09-01] VITALS (27 sets, daily range): BP systolic 66–147; BP diastolic 53–87
[2017-09-01] MEDS: mineral oil/petrolatum ophthal oint EACHEYE SCH ×4 (02:00→20:00)
[2017-09-01] MEDS: insulin regular, human vial - multi-dose SQ SCH ×4 (02:29→22:09)
[2017-09-01 03:38] LABS: BASOPHILS % (AUTO) 0 % (0-1); EOSINOPHILS # (AUTO) 0.2 X10'3 (0-0.9); EOSINOPHILS % (AUTO) 1.6 % (0-6); HEMATOCRIT 35.3 % (42.0-52.0); HEMOGLOBIN 11.6 g/dl (14.0-17.9); LYMPHOCYTES # (AUTO) 0.3 X10'3 (1.1-4.8); LYMPHOCYTES % (AUTO) 2.9 % (21-51); MEAN CORPUSCULAR HEMOGLOBIN 29.8 PG (27.0-31.0); MEAN CORPUSCULAR HGB CONC 32.9 % (33.0-36.5); MEAN CORPUSCULAR VOLUME 90.5 FL (78-98); MEAN PLATELET VOLUME 8.9 FL (7.4-10.4); MONOCYTES # (AUTO) 0.7 X10'3 (0-0.9); MONOCYTES % (AUTO) 6.6 % (2-12); NEUTROPHILS # (AUTO) 9.2 X10'3 (1.8-7.7); NEUTROPHILS % (AUTO) 88.9 % (42-75); PLATELET COUNT 220 X10'3 (140-440); RED BLOOD COUNT 3.91 X10'6 (4.70-6.10); RED CELL DISTRIBUTION WIDTH 16.2 % (11.5-14.5); WHITE BLOOD COUNT 10.3 X10'3 (4.5-11.0)
[2017-09-01 04:15] LABS: ALBUMIN 2.1 G/DL (3.4-5.0); ANION GAP 1 (8-16); BLOOD UREA NITROGEN 35 MG/DL (7-18); BUN/CREATININE RATIO 55.6 (5.4-32.0); CALCIUM 8.6 MG/DL (8.5-10.1); CHLORIDE 105 MMOL/L (99-107); CREATININE 0.63 MG/DL (0.60-1.10); GLUCOSE 132 MG/DL (70-104); MAGNESIUM 2.3 MG/DL (1.5-2.4); PHOSPHORUS 2.6 MG/DL (2.3-4.5); POTASSIUM 3.7 MMOL/L (3.5-5.1); SODIUM 146 MMOL/L (135-145); TOTAL CARBON DIOXIDE 39.7 MMOL/L (24-32); eGFR > 90 ML/MIN
[2017-09-01 04:51] LABS: ABG BASE EXCESS 8.4 mmol/L (-2.0-3.0); ABG HCO3 34.2 mmol/L (22.0-26.0); ABG OXYGEN SATURATION 96.8 % (95-98); ABG PCO2 (T) 50.7 mmHg (35.0-48.0); ABG PH (T) 7.443 (7.350-7.450); ABG PO2 (T) 93.1 mmHg (83-108); ALLEN'S TEST Positive; FCOHb 0.3 % (0.5-1.5); FMetHb 0.1 % (0.3-1.12); FO2Hb 96.4 % (94-100); PATIENT TEMPERATURE 36.3; PEEP 5 cm H2O; RESPIRATORY RATE 12 b/min; TIDAL VOLUME 450 mL; TOTAL HEMOGLOBIN 12.3 G/dl (14.0-18.0)
[2017-09-01] MEDS ORDERED: LACTOBACILLUS RHAMNOSUS GG 15 billion unit sprinkle caps PO SCH (07:30)
[2017-09-01] MEDS: K and/or MAG REPLACEMENT MC SCH (08:00)
[2017-09-01] MEDS: pantoprazole 40 MG vial IV SCH (08:06)
[2017-09-01] MEDS: HYDROchlorothiazide 12.5mg capsule PO SCH (08:06)
[2017-09-01] MEDS: lactobacillus rhamnosus 10,000 MMU CELLS/CAPSULE PO SCH ×2 (08:06→21:26)
[2017-09-01] MEDS: furosemide 20 MG/2 ML vial IV SCH (08:06)
[2017-09-01] MEDS: methylPREDNISolone sod succ/PF 40mg inj. IV SCH ×2 (08:06→21:25)
[2017-09-01] MEDS: potassium chloride 10mEq ER tablet PO SCH (08:07)
[2017-09-01] MEDS: citalopram 20mg tablet PO SCH (08:07)
[2017-09-01] MEDS: cefepime 2g/NS 100ml ADVANTAGE 100 ML IV SCH ×2 (08:08→21:24)
[2017-09-01] MEDS: linezolid 600mg/300ml PREMIX 300 ML IV SCH ×2 (09:17→21:24)
[2017-09-01] MEDS: carVEDilol 12.5mg tablet PO SCH ×2 (12:24→21:25)
[2017-09-01] MEDS: midazolam 100mg in NS 100ml 100 ML IV PRN (21:24)
[2017-09-01] MEDS: finasteride 5mg tablet PO SCH (21:25)
[2017-09-01] MEDS: rivaroxaban 20mg tablet PO SCH (21:25)
[2017-09-01] MEDS: atorvastatin 20mg tablet PO SCH (21:25)
[2017-09-01] MEDS: insulin glargine (Lantus) pen - multi-dose SQ SCH (22:10)
[2017-09-02] VITALS (26 sets, daily range): BP systolic 85–161; BP diastolic 32–82
[2017-09-02] MEDS: mineral oil/petrolatum ophthal oint EACHEYE SCH ×3 (02:00→14:01)
[2017-09-02 02:32] LABS: BASOPHILS % (AUTO) 0.1 % (0-1); EOSINOPHILS # (AUTO) 0.1 X10'3 (0-0.9); EOSINOPHILS % (AUTO) 1.5 % (0-6); HEMATOCRIT 31.8 % (42.0-52.0); HEMOGLOBIN 10.6 g/dl (14.0-17.9); LYMPHOCYTES # (AUTO) 0.3 X10'3 (1.1-4.8); LYMPHOCYTES % (AUTO) 3.3 % (21-51); MEAN CORPUSCULAR HEMOGLOBIN 30.2 PG (27.0-31.0); MEAN CORPUSCULAR HGB CONC 33.4 % (33.0-36.5); MEAN CORPUSCULAR VOLUME 90.4 FL (78-98); MEAN PLATELET VOLUME 8.7 FL (7.4-10.4); MONOCYTES # (AUTO) 0.3 X10'3 (0-0.9); MONOCYTES % (AUTO) 3.9 % (2-12); NEUTROPHILS # (AUTO) 7.7 X10'3 (1.8-7.7); NEUTROPHILS % (AUTO) 91.2 % (42-75); PLATELET COUNT 188 X10'3 (140-440); RED BLOOD COUNT 3.52 X10'6 (4.70-6.10); RED CELL DISTRIBUTION WIDTH 15.9 % (11.5-14.5); WHITE BLOOD COUNT 8.4 X10'3 (4.5-11.0)
[2017-09-02 02:52] LABS: ALBUMIN 1.9 G/DL (3.4-5.0); ANION GAP 0 (8-16); BLOOD UREA NITROGEN 40 MG/DL (7-18); BUN/CREATININE RATIO 60.6 (5.4-32.0); CALCIUM 8.2 MG/DL (8.5-10.1); CHLORIDE 105 MMOL/L (99-107); CREATININE 0.66 MG/DL (0.60-1.10); GLUCOSE 167 MG/DL (70-104); MAGNESIUM 2.2 MG/DL (1.5-2.4); PHOSPHORUS 2.8 MG/DL (2.3-4.5); PREALBUMIN 21.1 MG/DL (19-36); SODIUM 144 MMOL/L (135-145); eGFR > 90 ML/MIN
[2017-09-02] MEDS: insulin regular, human vial - multi-dose SQ SCH ×3 (02:52→14:00)
[2017-09-02 03:36] LABS: ABG BASE EXCESS 12.2 mmol/L (-2.0-3.0); ABG HCO3 37.6 mmol/L (22.0-26.0); ABG OXYGEN SATURATION 95.4 % (95-98); ABG PCO2 (T) 52.3 mmHg (35.0-48.0); ABG PH (T) 7.473 (7.350-7.450); ABG PO2 (T) 76.6 mmHg (83-108); ALLEN'S TEST Positive; FCOHb 0.1 % (0.5-1.5); FMetHb 0.1 % (0.3-1.12); FO2Hb 95.2 % (94-100); PATIENT TEMPERATURE 36.6; PEEP 5 cm H2O; RESPIRATORY RATE 12 b/min; RESPIRATORY RATE (OBSERVED) 12 b/min; TIDAL VOLUME 450 mL; TOTAL HEMOGLOBIN 10.9 G/dl (14.0-18.0)
[2017-09-02 04:26] LABS: OCCULT BLOOD STOOL POSITIVE (Neg)
[2017-09-02] MEDS: pantoprazole 40MG/NS 100ML BAG 100 ML IV SCH ×4 (06:00→21:39)
[2017-09-02] MEDS: cefepime 2g/NS 100ml ADVANTAGE 100 ML IV SCH ×2 (07:34→19:53)
[2017-09-02] MEDS: furosemide 20 MG/2 ML vial IV SCH (07:34)
[2017-09-02] MEDS: methylPREDNISolone sod succ/PF 40mg inj. IV SCH (07:35)
[2017-09-02] MEDS: potassium chloride 10mEq ER tablet PO SCH (07:35)
[2017-09-02] MEDS: lactobacillus rhamnosus 10,000 MMU CELLS/CAPSULE PO SCH ×2 (07:35→19:45)
[2017-09-02] MEDS: citalopram 20mg tablet PO SCH (07:35)
[2017-09-02] MEDS: carVEDilol 12.5mg tablet PO SCH ×2 (07:35→19:45)
[2017-09-02] MEDS: HYDROchlorothiazide 12.5mg capsule PO SCH (07:35)
[2017-09-02] MEDS: pantoprazole 40 MG vial IV SCH (07:49)
[2017-09-02] MEDS: K and/or MAG REPLACEMENT MC SCH (07:49)
[2017-09-02] MEDS ORDERED: MIDAZolam 5mg/ml 2ml vial ONE (11:36)
[2017-09-02] MEDS ORDERED: fentaNYL/PF 50MCG/1 ML 2ML syringe ONE (11:36)
[2017-09-02] MEDS ORDERED: LIDOcaine Viscous 15ml cup ONE (11:37)
[2017-09-02] MEDS ORDERED: fentaNYL/PF 50MCG/1 ML 2ML syringe IV PRN (13:00)
[2017-09-02] MEDS ORDERED: MIDAZolam 5mg/5ml vial IV PRN (13:00)
[2017-09-02] MEDS ORDERED: ipratropium/albuterol 3ml nebule NEB PRN (16:25)
[2017-09-02] MEDS ORDERED: racepinephrine 11.25mg/0.5ml nebule NEB PRN (16:25)
[2017-09-02] MEDS: methylPREDNISolone sod succ 125mg/2ml vial IV SCH (19:45)
[2017-09-02] MEDS: ipratropium/albuterol 3ml nebule NEB SCH (20:11)
[2017-09-02] MEDS: insulin glargine (Lantus) pen - multi-dose SQ SCH (21:00)
[2017-09-02] MEDS: atorvastatin 20mg tablet PO SCH (21:39)
[2017-09-02] MEDS: finasteride 5mg tablet PO SCH (21:39)
[2017-09-02] MEDS: rivaroxaban 20mg tablet PO SCH (21:39)
[2017-09-03] VITALS (24 sets, daily range): BP systolic 123–180; BP diastolic 61–81
[2017-09-03] MEDS: pantoprazole 40MG/NS 100ML BAG 100 ML IV SCH ×6 (02:43→22:48)
[2017-09-03] MEDS: ipratropium/albuterol 3ml nebule NEB SCH ×4 (03:04→21:10)
[2017-09-03 03:21] LABS: BASOPHILS % (AUTO) 0 % (0-1); EOSINOPHILS # (AUTO) 0.3 X10'3 (0-0.9); EOSINOPHILS % (AUTO) 1.9 % (0-6); HEMATOCRIT 33.1 % (42.0-52.0); HEMOGLOBIN 11.1 g/dl (14.0-17.9); LYMPHOCYTES # (AUTO) 0.4 X10'3 (1.1-4.8); LYMPHOCYTES % (AUTO) 2.5 % (21-51); MEAN CORPUSCULAR HEMOGLOBIN 30.3 PG (27.0-31.0); MEAN CORPUSCULAR HGB CONC 33.7 % (33.0-36.5); MEAN CORPUSCULAR VOLUME 89.9 FL (78-98); MEAN PLATELET VOLUME 8.5 FL (7.4-10.4); MONOCYTES # (AUTO) 0.3 X10'3 (0-0.9); MONOCYTES % (AUTO) 2.1 % (2-12); NEUTROPHILS # (AUTO) 14.5 X10'3 (1.8-7.7); NEUTROPHILS % (AUTO) 93.5 % (42-75); PLATELET COUNT 227 X10'3 (140-440); RED BLOOD COUNT 3.68 X10'6 (4.70-6.10); RED CELL DISTRIBUTION WIDTH 15.8 % (11.5-14.5); WHITE BLOOD COUNT 15.6 X10'3 (4.5-11.0)
[2017-09-03 03:34] LABS: ANION GAP 1 (8-16); BLOOD UREA NITROGEN 39 MG/DL (7-18); BUN/CREATININE RATIO 62.9 (5.4-32.0); CALCIUM 8.4 MG/DL (8.5-10.1); CHLORIDE 104 MMOL/L (99-107); CREATININE 0.62 MG/DL (0.60-1.10); GLUCOSE 100 MG/DL (70-104); MAGNESIUM 2.2 MG/DL (1.5-2.4); POTASSIUM 3.9 MMOL/L (3.5-5.1); SODIUM 146 MMOL/L (135-145); eGFR > 90 ML/MIN
[2017-09-03 03:39] LABS: TOTAL CARBON DIOXIDE 41.4 MMOL/L (24-32)
[2017-09-03] MEDS: furosemide 20 MG/2 ML vial IV SCH (07:41)
[2017-09-03] MEDS: methylPREDNISolone sod succ 125mg/2ml vial IV SCH ×2 (07:41→19:41)
[2017-09-03] MEDS: potassium chloride 10mEq ER tablet PO SCH (07:42)
[2017-09-03] MEDS: HYDROchlorothiazide 12.5mg capsule PO SCH (07:42)
[2017-09-03] MEDS: citalopram 20mg tablet PO SCH (07:42)
[2017-09-03] MEDS: cefepime 2g/NS 100ml ADVANTAGE 100 ML IV SCH (07:42)
[2017-09-03] MEDS: lactobacillus rhamnosus 10,000 MMU CELLS/CAPSULE PO SCH ×2 (07:42→19:41)
[2017-09-03] MEDS: carVEDilol 12.5mg tablet PO SCH ×2 (07:42→21:16)
[2017-09-03] MEDS: K and/or MAG REPLACEMENT MC SCH (08:00)
[2017-09-03] MEDS ORDERED: cefepime inj 2 GM in normal saline 100ml IV soln 100 ML IV ONE (10:22)
[2017-09-03] MEDS ORDERED: hydrALAZINE 20mg/ml inj. IV PRN (17:35)
[2017-09-03] MEDS ORDERED: HYDROchlorothiazide 25mg tablet PO ONE (17:35)
[2017-09-03] MEDS ORDERED: MORPHINE 2MG in 2ml NS syringe IV PRN (18:47)
[2017-09-03] MEDS: WATER IV SCH (19:40)
[2017-09-03] MEDS: DEXTROSE 5% IV SCH (19:40)
[2017-09-03] MEDS: CEFEPIME IV SCH (19:40)
[2017-09-03] MEDS: finasteride 5mg tablet PO SCH (21:15)
[2017-09-03] MEDS: atorvastatin 20mg tablet PO SCH (21:15)
[2017-09-03] MEDS: rivaroxaban 20mg tablet PO SCH (21:15)
[2017-09-03] MEDS: insulin glargine (Lantus) pen - multi-dose SQ SCH (21:19)
[2017-09-04] VITALS (14 sets, daily range): BP systolic 114–157; BP diastolic 53–84
[2017-09-04 02:54] LABS: BASOPHILS % (AUTO) 0 % (0-1); EOSINOPHILS # (AUTO) 0.2 X10'3 (0-0.9); EOSINOPHILS % (AUTO) 1.4 % (0-6); HEMATOCRIT 33.3 % (42.0-52.0); HEMOGLOBIN 11.1 g/dl (14.0-17.9); LYMPHOCYTES # (AUTO) 0.3 X10'3 (1.1-4.8); LYMPHOCYTES % (AUTO) 2.2 % (21-51); MEAN CORPUSCULAR HEMOGLOBIN 29.9 PG (27.0-31.0); MEAN CORPUSCULAR HGB CONC 33.3 % (33.0-36.5); MEAN PLATELET VOLUME 8.2 FL (7.4-10.4); MONOCYTES # (AUTO) 0.3 X10'3 (0-0.9); MONOCYTES % (AUTO) 2.4 % (2-12); NEUTROPHILS # (AUTO) 13.2 X10'3 (1.8-7.7); PLATELET COUNT 233 X10'3 (140-440); RED CELL DISTRIBUTION WIDTH 15.5 % (11.5-14.5); WHITE BLOOD COUNT 14.1 X10'3 (4.5-11.0)
[2017-09-04] MEDS: ipratropium/albuterol 3ml nebule NEB SCH ×4 (03:15→20:45)
[2017-09-04 03:16] LABS: ALBUMIN 2.1 G/DL (3.4-5.0); ANION GAP 0 (8-16); BLOOD UREA NITROGEN 40 MG/DL (7-18); BUN/CREATININE RATIO 56.3 (5.4-32.0); CALCIUM 8.3 MG/DL (8.5-10.1); CHLORIDE 104 MMOL/L (99-107); CREATININE 0.71 MG/DL (0.60-1.10); GLUCOSE 209 MG/DL (70-104); MAGNESIUM 2.4 MG/DL (1.5-2.4); PHOSPHORUS 4.6 MG/DL (2.3-4.5); POTASSIUM 4.2 MMOL/L (3.5-5.1); SODIUM 146 MMOL/L (135-145); eGFR > 90 ML/MIN
[2017-09-04 03:29] LABS: TOTAL CARBON DIOXIDE 41.9 MMOL/L (24-32)
[2017-09-04] MEDS: pantoprazole 40MG/NS 100ML BAG 100 ML IV SCH ×2 (03:46→10:23)
[2017-09-04] MEDS: furosemide 20 MG/2 ML vial IV SCH (07:19)
[2017-09-04] MEDS: DEXTROSE 5% IV SCH (07:20)
[2017-09-04] MEDS: WATER IV SCH (07:20)
[2017-09-04] MEDS: CEFEPIME IV SCH (07:20)
[2017-09-04] MEDS: citalopram 20mg tablet PO SCH (07:20)
[2017-09-04] MEDS: lactobacillus rhamnosus 10,000 MMU CELLS/CAPSULE PO SCH ×2 (07:21→18:57)
[2017-09-04] MEDS: carVEDilol 12.5mg tablet PO SCH ×2 (07:21→18:57)
[2017-09-04] MEDS: HYDROchlorothiazide 25mg tablet PO SCH (07:22)
[2017-09-04] MEDS: methylPREDNISolone sod succ 125mg/2ml vial IV SCH (07:37)
[2017-09-04] MEDS: potassium chloride 10mEq ER tablet PO SCH (07:40)
[2017-09-04] MEDS: K and/or MAG REPLACEMENT MC SCH (07:41)
[2017-09-04] MEDS ORDERED: cefepime inj 2 GM in normal saline 100ml IV soln 100 ML IV ONE (08:00)
[2017-09-04] MEDS: pantoprazole 40mg Tablet.DR PO SCH ×2 (14:27→18:57)
[2017-09-04] MEDS: insulin Lispro (HumaLOG) vial - multi-dose SQ SCH ×2 (14:31→18:56)
[2017-09-04] MEDS: cefepime inj 2 GM in dextrose 5%-water 50ml 50 ML IV SCH (18:57)
[2017-09-04] MEDS: finasteride 5mg tablet PO SCH (21:39)
[2017-09-04] MEDS: atorvastatin 20mg tablet PO SCH (21:39)
[2017-09-04] MEDS: insulin glargine (Lantus) pen - multi-dose SQ SCH (21:39)
[2017-09-04] MEDS ORDERED: phytonadione inj. 5 MG in normal saline 100ml IV soln 99.5 ML IV ONE (23:25)
[2017-09-05] VITALS (7 sets, daily range): BP systolic 133–177; BP diastolic 65–87
[2017-09-05] MEDS ORDERED: phytonadione 10 MG/1 ML amp ONE (00:03)
[2017-09-05] MEDS: ipratropium/albuterol 3ml nebule NEB SCH ×4 (02:20→21:11)
[2017-09-05 06:08] LABS: BASOPHILS % (AUTO) 0 % (0-1); EOSINOPHILS # (AUTO) 0.2 X10'3 (0-0.9); EOSINOPHILS % (AUTO) 1.1 % (0-6); HEMATOCRIT 35.6 % (42.0-52.0); HEMOGLOBIN 12.1 g/dl (14.0-17.9); LYMPHOCYTES # (AUTO) 0.5 X10'3 (1.1-4.8); LYMPHOCYTES % (AUTO) 3.2 % (21-51); MEAN CORPUSCULAR HEMOGLOBIN 30.4 PG (27.0-31.0); MEAN CORPUSCULAR HGB CONC 33.9 % (33.0-36.5); MEAN CORPUSCULAR VOLUME 89.6 FL (78-98); MEAN PLATELET VOLUME 7.8 FL (7.4-10.4); MONOCYTES # (AUTO) 0.9 X10'3 (0-0.9); NEUTROPHILS # (AUTO) 13.3 X10'3 (1.8-7.7); NEUTROPHILS % (AUTO) 89.7 % (42-75); PLATELET COUNT 213 X10'3 (140-440); RED BLOOD COUNT 3.97 X10'6 (4.70-6.10); RED CELL DISTRIBUTION WIDTH 15.8 % (11.5-14.5); WHITE BLOOD COUNT 14.8 X10'3 (4.5-11.0)
[2017-09-05 06:12] LABS: ALBUMIN 2.3 G/DL (3.4-5.0); ANION GAP 0 (8-16); BLOOD UREA NITROGEN 33 MG/DL (7-18); BUN/CREATININE RATIO 55.9 (5.4-32.0); CALCIUM 8.6 MG/DL (8.5-10.1); CHLORIDE 104 MMOL/L (99-107); CREATININE 0.59 MG/DL (0.60-1.10); GLUCOSE 133 MG/DL (70-104); MAGNESIUM 2.4 MG/DL (1.5-2.4); PHOSPHORUS 3.6 MG/DL (2.3-4.5); POTASSIUM 4.1 MMOL/L (3.5-5.1); PREALBUMIN 27.4 MG/DL (19-36); SODIUM 147 MMOL/L (135-145); eGFR > 90 ML/MIN
[2017-09-05] MEDS: HYDROchlorothiazide 25mg tablet PO SCH (07:36)
[2017-09-05] MEDS: potassium chloride 10mEq ER tablet PO SCH (07:36)
[2017-09-05] MEDS: citalopram 20mg tablet PO SCH (07:36)
[2017-09-05] MEDS: pantoprazole 40mg Tablet.DR PO SCH ×2 (07:36→20:25)
[2017-09-05] MEDS: lactobacillus rhamnosus 10,000 MMU CELLS/CAPSULE PO SCH ×2 (07:36→20:24)
[2017-09-05] MEDS: predniSONE 20 mg tablet PO SCH (07:36)
[2017-09-05] MEDS: carVEDilol 12.5mg tablet PO SCH ×2 (07:37→20:26)
[2017-09-05] MEDS: cefepime inj 2 GM in dextrose 5%-water 50ml 50 ML IV SCH ×2 (07:39→20:24)
[2017-09-05] MEDS: K and/or MAG REPLACEMENT MC SCH (07:47)
[2017-09-05] MEDS ORDERED: cefazolin 1gm/NS 100mL 100 ML IV ONE (07:49)
[2017-09-05] MEDS ORDERED: fentaNYL/PF 50MCG/1 ML 2ML syringe ONE (07:49)
[2017-09-05] MEDS ORDERED: midazolam 2 mg/2 ml injection ONE (07:49)
[2017-09-05] MEDS ORDERED: ceFAZolin 1000mg inj ONE (07:50)
[2017-09-05] MEDS ORDERED: LIDOcaine 1.5% w/epinephrine 1:200,000 5ml ampul ONE (07:50)
[2017-09-05] MEDS: furosemide 20 MG/2 ML vial IV SCH (10:13)
[2017-09-05] MEDS ORDERED: cefepime inj 2 GM in dextrose 5%-water 50ml 50 ML IV SCH ×2 (10:16→10:19)
[2017-09-05] MEDS: finasteride 5mg tablet PO SCH (20:25)
[2017-09-05] MEDS: atorvastatin 20mg tablet PO SCH (20:25)
[2017-09-05] MEDS: enoxaparin 80mg/0.8ml syringe SUBCUT SCH (20:26)
[2017-09-05] MEDS: insulin glargine (Lantus) pen - multi-dose SQ SCH (20:47)
[2017-09-05] MEDS: rivaroxaban 20mg tablet PO SCH (21:00)
[2017-09-05] MEDS: temazepam 15mg capsule PO PRN (22:49)
[2017-09-05 23:40] LABS: ABG BASE EXCESS 13.4 mmol/L (-2.0-3.0); ABG HCO3 46.4 mmol/L (22.0-26.0); ABG OXYGEN SATURATION 92.1 % (95-98); ABG PCO2 (T) 123.9 mmHg (35.0-48.0); ABG PH (T) 7.191 (7.350-7.450); ABG PO2 (T) 83.9 mmHg (83-108); ALLEN'S TEST Positive; FCOHb 0.2 % (0.5-1.5); FLOW 2 L/min; FMetHb 0.3 % (0.3-1.12); FO2Hb 91.6 % (94-100); TOTAL HEMOGLOBIN 12.5 G/dl (14.0-18.0)
[2017-09-06] VITALS (26 sets, daily range): BP systolic 66–175; BP diastolic 33–102
[2017-09-06] MEDS ORDERED: flumazenil 0.1 mg/ml inj. IV ONE
[2017-09-06] MEDS ORDERED: DOPamine 400mg/D5W 250ml 250 ML IV SCH (00:50)
[2017-09-06] MEDS: DOPamine 400mg/D5W 250ml 250 ML IV SCH ×3 (01:39→22:23)
[2017-09-06 02:05] LABS: PROTHROMBIN TIME 10.6 SECONDS (9.0-12.0)
[2017-09-06 02:14] LABS: GLUCOSE 145 MG/DL (70-104)
[2017-09-06 02:15] LABS: ANION GAP -6 (8-16); CHLORIDE 101 MMOL/L (99-107); POTASSIUM 3.8 MMOL/L (3.5-5.1); SODIUM 145 MMOL/L (135-145)
[2017-09-06 02:16] LABS: ALBUMIN 2.4 G/DL (3.4-5.0); ALBUMIN/GLOBULIN RATIO 0.8 (1.1-1.5); BILIRUBIN,TOTAL 0.5 MG/DL (0.1-1.0); BLOOD UREA NITROGEN 32 MG/DL (7-18); BUN/CREATININE RATIO 42.7 (5.4-32.0); CALCIUM 8.5 MG/DL (8.5-10.1); CREATININE 0.75 MG/DL (0.60-1.10); TOTAL CARBON DIOXIDE > 50 MMOL/L (24-32); TOTAL PROTEIN 5.5 G/DL (6.4-8.2); TROPONIN I 0.13 NG/ML (0.0-0.05); eGFR > 90 ML/MIN
[2017-09-06 02:17] LABS: ALANINE AMINOTRANSFERASE 125 U/L (12-78); ALKALINE PHOSPHATASE 103 IU/L (46-116); ASPARTATE AMINO TRANSFERASE 51 U/L (10-37)
[2017-09-06 02:19] LABS: HEMATOCRIT 34.6 % (42.0-52.0); HEMOGLOBIN 11.5 g/dl (14.0-17.9); MEAN CORPUSCULAR HEMOGLOBIN 29.9 PG (27.0-31.0); MEAN CORPUSCULAR HGB CONC 33.1 % (33.0-36.5); MEAN CORPUSCULAR VOLUME 90.4 FL (78-98); MEAN PLATELET VOLUME 7.5 FL (7.4-10.4); PLATELET COUNT 226 X10'3 (140-440); RED BLOOD COUNT 3.83 X10'6 (4.70-6.10); RED CELL DISTRIBUTION WIDTH 15.3 % (11.5-14.5)
[2017-09-06 02:20] LABS: NEUTROPHILS % (AUTO) 85.9 % (42-75)
[2017-09-06 02:21] LABS: BASOPHILS % (AUTO) 0.1 % (0-1); EOSINOPHILS # (AUTO) 0.1 X10'3 (0-0.9); LYMPHOCYTES # (AUTO) 0.6 X10'3 (1.1-4.8); LYMPHOCYTES % (AUTO) 5.6 % (21-51); MONOCYTES # (AUTO) 0.8 X10'3 (0-0.9); MONOCYTES % (AUTO) 7.4 % (2-12); NEUTROPHILS # (AUTO) 9.4 X10'3 (1.8-7.7)
[2017-09-06] MEDS: ipratropium/albuterol 3ml nebule NEB SCH ×4 (03:19→20:54)
[2017-09-06 04:11] LABS: ABG BASE EXCESS 23.4 mmol/L (-2.0-3.0); ABG HCO3 50.9 mmol/L (22.0-26.0); ABG OXYGEN SATURATION 89.8 % (95-98); ABG PCO2 (T) 67.8 mmHg (35.0-48.0); ABG PO2 (T) 51.9 mmHg (83-108); ALLEN'S TEST Positive; FCOHb 0.4 % (0.5-1.5); FMetHb 0.3 % (0.3-1.12); FO2Hb 89.2 % (94-100); PATIENT TEMPERATURE 36.2; RESPIRATORY RATE 18 b/min; RESPIRATORY RATE (OBSERVED) 18 b/min; TOTAL HEMOGLOBIN 11.6 G/dl (14.0-18.0)
[2017-09-06 06:14] LABS: BASOPHILS % (AUTO) 0 % (0-1); EOSINOPHILS # (AUTO) 0.2 X10'3 (0-0.9); EOSINOPHILS % (AUTO) 1.8 % (0-6); HEMATOCRIT 39.7 % (42.0-52.0); HEMOGLOBIN 13.4 g/dl (14.0-17.9); LYMPHOCYTES # (AUTO) 0.9 X10'3 (1.1-4.8); LYMPHOCYTES % (AUTO) 8.3 % (21-51); MEAN CORPUSCULAR HGB CONC 33.6 % (33.0-36.5); MEAN CORPUSCULAR VOLUME 89.3 FL (78-98); MEAN PLATELET VOLUME 7.7 FL (7.4-10.4); MONOCYTES % (AUTO) 9.1 % (2-12); NEUTROPHILS # (AUTO) 8.9 X10'3 (1.8-7.7); NEUTROPHILS % (AUTO) 80.8 % (42-75); PLATELET COUNT 228 X10'3 (140-440); RED BLOOD COUNT 4.45 X10'6 (4.70-6.10); RED CELL DISTRIBUTION WIDTH 15.3 % (11.5-14.5)
[2017-09-06 07:07] LABS: ALANINE AMINOTRANSFERASE 138 U/L (12-78); ALBUMIN 2.8 G/DL (3.4-5.0); ALBUMIN/GLOBULIN RATIO 0.8 (1.1-1.5); ALKALINE PHOSPHATASE 107 IU/L (46-116); ASPARTATE AMINO TRANSFERASE 55 U/L (10-37); BILIRUBIN,TOTAL 0.6 MG/DL (0.1-1.0); BLOOD UREA NITROGEN 32 MG/DL (7-18); CALCIUM 9.2 MG/DL (8.5-10.1); CHLORIDE 99 MMOL/L (99-107); CREATININE 0.64 MG/DL (0.60-1.10); GLUCOSE 107 MG/DL (70-104); MAGNESIUM 2.4 MG/DL (1.5-2.4); PHOSPHORUS 2.3 MG/DL (2.3-4.5); POTASSIUM 3.6 MMOL/L (3.5-5.1); SODIUM 146 MMOL/L (135-145); TOTAL PROTEIN 6.3 G/DL (6.4-8.2); eGFR > 90 ML/MIN
[2017-09-06 07:25] LABS: ANION GAP 1 (8-16)
[2017-09-06 07:28] LABS: TOTAL CARBON DIOXIDE 46.2 MMOL/L (24-32)
[2017-09-06] MEDS: predniSONE 20 mg tablet PO SCH (07:57)
[2017-09-06] MEDS: HYDROchlorothiazide 25mg tablet PO SCH (07:57)
[2017-09-06] MEDS: pantoprazole 40mg Tablet.DR PO SCH ×2 (07:57→20:00)
[2017-09-06] MEDS: lactobacillus rhamnosus 10,000 MMU CELLS/CAPSULE PO SCH ×2 (08:00→20:00)
[2017-09-06] MEDS: potassium chloride 10mEq ER tablet PO SCH (08:00)
[2017-09-06] MEDS: carVEDilol 12.5mg tablet PO SCH ×2 (08:00→20:00)
[2017-09-06] MEDS: K and/or MAG REPLACEMENT MC SCH (08:00)
[2017-09-06] MEDS: citalopram 20mg tablet PO SCH (08:00)
[2017-09-06] MEDS: enoxaparin 80mg/0.8ml syringe SUBCUT SCH ×2 (08:01→20:16)
[2017-09-06] MEDS: furosemide 20 MG/2 ML vial IV SCH (08:01)
[2017-09-06] MEDS: insulin Lispro (HumaLOG) vial - multi-dose SQ SCH (08:24)
[2017-09-06] MEDS: dextrose ORAL solution 15 GM/59 ML bottle PO PRN (11:49)
[2017-09-06 15:51] LABS: ABG BASE EXCESS 13.8 mmol/L (-2.0-3.0); ABG HCO3 44.6 mmol/L (22.0-26.0); ABG OXYGEN SATURATION 91.1 % (95-98); ABG PCO2 (T) 92.8 mmHg (35.0-48.0); ABG PO2 (T) 66.7 mmHg (83-108); ALLEN'S TEST Positive; FCOHb 0.7 % (0.5-1.5); FLOW 15 L/min; FMetHb 0.1 % (0.3-1.12); FO2Hb 90.4 % (94-100); TOTAL HEMOGLOBIN 13.8 G/dl (14.0-18.0)
[2017-09-06 17:05] LABS: BASOPHILS # (AUTO) 0.1 X10'3 (0-0.2); BASOPHILS % (AUTO) 0.6 % (0-1); EOSINOPHILS # (AUTO) 0.1 X10'3 (0-0.9); EOSINOPHILS % (AUTO) 1.1 % (0-6); HEMATOCRIT 34.9 % (42.0-52.0); HEMOGLOBIN 11.6 g/dl (14.0-17.9); LYMPHOCYTES # (AUTO) 0.2 X10'3 (1.1-4.8); LYMPHOCYTES % (AUTO) 2.4 % (21-51); MEAN CORPUSCULAR HGB CONC 33.1 % (33.0-36.5); MEAN CORPUSCULAR VOLUME 90.5 FL (78-98); MEAN PLATELET VOLUME 7.7 FL (7.4-10.4); MONOCYTES # (AUTO) 0.1 X10'3 (0-0.9); MONOCYTES % (AUTO) 1.7 % (2-12); NEUTROPHILS # (AUTO) 8.1 X10'3 (1.8-7.7); NEUTROPHILS % (AUTO) 94.2 % (42-75); PLATELET COUNT 222 X10'3 (140-440); RED BLOOD COUNT 3.85 X10'6 (4.70-6.10); RED CELL DISTRIBUTION WIDTH 15.3 % (11.5-14.5); WHITE BLOOD COUNT 8.6 X10'3 (4.5-11.0)
[2017-09-06 17:27] LABS: ALANINE AMINOTRANSFERASE 111 U/L (12-78); ALBUMIN 2.4 G/DL (3.4-5.0); ALBUMIN/GLOBULIN RATIO 0.7 (1.1-1.5); ALKALINE PHOSPHATASE 89 IU/L (46-116); ASPARTATE AMINO TRANSFERASE 45 U/L (10-37); BILIRUBIN,TOTAL 0.5 MG/DL (0.1-1.0); BLOOD UREA NITROGEN 29 MG/DL (7-18); BUN/CREATININE RATIO 37.2 (5.4-32.0); CALCIUM 8.8 MG/DL (8.5-10.1); CHLORIDE 97 MMOL/L (99-107); CREATININE 0.78 MG/DL (0.60-1.10); GLUCOSE 128 MG/DL (70-104); POTASSIUM 3.9 MMOL/L (3.5-5.1); SODIUM 143 MMOL/L (135-145); TOTAL PROTEIN 5.7 G/DL (6.4-8.2); TROPONIN I 0.12 NG/ML (0.0-0.05); eGFR > 90 ML/MIN
[2017-09-06 17:49] LABS: ANION GAP -4 (8-16)
[2017-09-06 17:53] LABS: TOTAL CARBON DIOXIDE 49.6 MMOL/L (24-32)
[2017-09-06 19:36] LABS: ABG BASE EXCESS 15.9 mmol/L (-2.0-3.0); ABG HCO3 40.3 mmol/L (22.0-26.0); ABG PCO2 (T) 47.4 mmHg (35.0-48.0); ABG PH (T) 7.547 (7.350-7.450); ABG PO2 (T) 64.2 mmHg (83-108); FCOHb 0.3 % (0.5-1.5); FMetHb 0.2 % (0.3-1.12); FO2Hb 92.5 % (94-100); MINUTE VOLUME 13 L/min; RESPIRATORY RATE (OBSERVED) 20 b/min; TOTAL HEMOGLOBIN 12.2 G/dl (14.0-18.0)
[2017-09-06] MEDS: finasteride 5mg tablet PO SCH (20:00)
[2017-09-06] MEDS: atorvastatin 20mg tablet PO SCH (20:00)
[2017-09-06] MEDS: rivaroxaban 20mg tablet PO SCH (20:17)
[2017-09-06] MEDS: insulin glargine (Lantus) pen - multi-dose SQ SCH (21:00)
[2017-09-07] VITALS (19 sets, daily range): BP systolic 81–149; BP diastolic 48–94
[2017-09-07] MEDS: ipratropium/albuterol 3ml nebule NEB SCH ×4 (03:45→20:59)
[2017-09-07 05:17] LABS: BASOPHILS % (AUTO) 0.1 % (0-1); EOSINOPHILS # (AUTO) 0.1 X10'3 (0-0.9); EOSINOPHILS % (AUTO) 1.2 % (0-6); HEMATOCRIT 32.1 % (42.0-52.0); HEMOGLOBIN 10.7 g/dl (14.0-17.9); LYMPHOCYTES # (AUTO) 0.6 X10'3 (1.1-4.8); LYMPHOCYTES % (AUTO) 8.2 % (21-51); MEAN CORPUSCULAR HEMOGLOBIN 29.8 PG (27.0-31.0); MEAN CORPUSCULAR HGB CONC 33.4 % (33.0-36.5); MEAN CORPUSCULAR VOLUME 89.1 FL (78-98); MEAN PLATELET VOLUME 7.8 FL (7.4-10.4); MONOCYTES # (AUTO) 0.6 X10'3 (0-0.9); MONOCYTES % (AUTO) 7.6 % (2-12); NEUTROPHILS # (AUTO) 6.2 X10'3 (1.8-7.7); NEUTROPHILS % (AUTO) 82.9 % (42-75); PLATELET COUNT 182 X10'3 (140-440); RED CELL DISTRIBUTION WIDTH 15.4 % (11.5-14.5); WHITE BLOOD COUNT 7.4 X10'3 (4.5-11.0)
[2017-09-07 05:45] LABS: ALBUMIN 2.2 G/DL (3.4-5.0); ANION GAP -3 (8-16); BLOOD UREA NITROGEN 30 MG/DL (7-18); CALCIUM 8.4 MG/DL (8.5-10.1); CHLORIDE 101 MMOL/L (99-107); GLUCOSE 100 MG/DL (70-104); MAGNESIUM 2.1 MG/DL (1.5-2.4); PHOSPHORUS 2.9 MG/DL (2.3-4.5); POTASSIUM 3.4 MMOL/L (3.5-5.1); SODIUM 141 MMOL/L (135-145); eGFR > 90 ML/MIN
[2017-09-07 05:46] LABS: TOTAL CARBON DIOXIDE 43.1 MMOL/L (24-32)
[2017-09-07 06:46] LABS: ABG BASE EXCESS 19.5 mmol/L (-2.0-3.0); ABG HCO3 47.7 mmol/L (22.0-26.0); ABG OXYGEN SATURATION 98.1 % (95-98); ABG PCO2 (T) 74.2 mmHg (35.0-48.0); ABG PH (T) 7.426 (7.350-7.450); ABG PO2 (T) 134.9 mmHg (83-108); ALLEN'S TEST Positive; FCOHb 0.2 % (0.5-1.5); FO2Hb 97.9 % (94-100); MINUTE VOLUME 12 L/min; RESPIRATORY RATE 22 b/min; RESPIRATORY RATE (OBSERVED) 33 b/min; TOTAL HEMOGLOBIN 12.2 G/dl (14.0-18.0)
[2017-09-07] MEDS: dextrose ORAL solution 15 GM/59 ML bottle PO PRN (07:46)
[2017-09-07] MEDS ORDERED: aspirin 325mg tablet PO ONE (08:10)
[2017-09-07] MEDS: aspirin 325mg tablet PO SCH (08:30)
[2017-09-07] MEDS: pantoprazole 40mg Tablet.DR PO SCH ×2 (08:48→19:52)
[2017-09-07] MEDS: potassium chloride 10mEq ER tablet PO SCH (08:50)
[2017-09-07] MEDS: lactobacillus rhamnosus 10,000 MMU CELLS/CAPSULE PO SCH ×2 (08:51→19:53)
[2017-09-07] MEDS: citalopram 20mg tablet PO SCH (08:51)
[2017-09-07] MEDS: HYDROchlorothiazide 25mg tablet PO SCH (08:51)
[2017-09-07] MEDS: potassium Cl 20 mEq SR tablet PO PRN ×2 (08:51→19:53)
[2017-09-07] MEDS: carVEDilol 12.5mg tablet PO SCH (08:51)
[2017-09-07] MEDS: predniSONE 20 mg tablet PO SCH (08:52)
[2017-09-07] MEDS: enoxaparin 80mg/0.8ml syringe SUBCUT SCH ×2 (08:53→19:56)
[2017-09-07] MEDS: K and/or MAG REPLACEMENT MC SCH (08:54)
[2017-09-07] MEDS: furosemide 20 MG/2 ML vial IV SCH ×2 (11:12→21:36)
[2017-09-07] MEDS: insulin glargine (Lantus) pen - multi-dose SQ SCH (19:13)
[2017-09-07] MEDS: albumin (human) 25% 100 ML IV solution IV SCH (19:47)
[2017-09-07] MEDS: carVEDilol 3.125mg tablet PO SCH (19:53)
[2017-09-07] MEDS: finasteride 5mg tablet PO SCH (21:36)
[2017-09-07] MEDS: atorvastatin 20mg tablet PO SCH (21:36)
[2017-09-08] VITALS (29 sets, daily range): BP systolic 81–140; BP diastolic 42–80
[2017-09-08] MEDS: DOPamine 400mg/D5W 250ml 250 ML IV SCH ×2 (00:54→17:59)
[2017-09-08] MEDS: ipratropium/albuterol 3ml nebule NEB SCH ×4 (03:51→20:21)
[2017-09-08 05:11] LABS: BASOPHILS % (AUTO) 0.1 % (0-1); EOSINOPHILS # (AUTO) 0.1 X10'3 (0-0.9); EOSINOPHILS % (AUTO) 1.5 % (0-6); HEMATOCRIT 28.3 % (42.0-52.0); HEMOGLOBIN 9.7 g/dl (14.0-17.9); LYMPHOCYTES # (AUTO) 0.8 X10'3 (1.1-4.8); MEAN CORPUSCULAR HEMOGLOBIN 30.3 PG (27.0-31.0); MEAN CORPUSCULAR HGB CONC 34.1 % (33.0-36.5); MONOCYTES # (AUTO) 0.5 X10'3 (0-0.9); MONOCYTES % (AUTO) 6.9 % (2-12); NEUTROPHILS # (AUTO) 5.6 X10'3 (1.8-7.7); NEUTROPHILS % (AUTO) 80.5 % (42-75); PLATELET COUNT 164 X10'3 (140-440); RED BLOOD COUNT 3.19 X10'6 (4.70-6.10); RED CELL DISTRIBUTION WIDTH 15.2 % (11.5-14.5); WHITE BLOOD COUNT 6.9 X10'3 (4.5-11.0)
[2017-09-08 05:54] LABS: ALBUMIN 2.6 G/DL (3.4-5.0); ANION GAP 1 (8-16); BLOOD UREA NITROGEN 25 MG/DL (7-18); BUN/CREATININE RATIO 40.3 (5.4-32.0); CALCIUM 8.4 MG/DL (8.5-10.1); CHLORIDE 98 MMOL/L (99-107); CREATININE 0.62 MG/DL (0.60-1.10); GLUCOSE 130 MG/DL (70-104); PHOSPHORUS 2.3 MG/DL (2.3-4.5); POTASSIUM 3.4 MMOL/L (3.5-5.1); SODIUM 141 MMOL/L (135-145); eGFR > 90 ML/MIN
[2017-09-08] MEDS ORDERED: Protein Smoothie (high protein) 240ml (8oz) cup PO SCH (07:30)
[2017-09-08] MEDS: predniSONE 20 mg tablet PO SCH (07:48)
[2017-09-08] MEDS: citalopram 20mg tablet PO SCH (07:48)
[2017-09-08] MEDS: carVEDilol 3.125mg tablet PO SCH ×2 (07:48→21:23)
[2017-09-08] MEDS: pantoprazole 40mg Tablet.DR PO SCH ×2 (07:48→21:23)
[2017-09-08] MEDS: potassium Cl 20 mEq SR tablet PO PRN ×3 (07:48→21:23)
[2017-09-08] MEDS: aspirin 325mg tablet PO SCH (07:48)
[2017-09-08] MEDS: enoxaparin 80mg/0.8ml syringe SUBCUT SCH ×2 (07:49→20:00)
[2017-09-08] MEDS: albumin (human) 25% 100 ML IV solution IV SCH ×2 (07:50→21:22)
[2017-09-08] MEDS: furosemide 20 MG/2 ML vial IV SCH ×2 (08:00)
[2017-09-08] MEDS: K and/or MAG REPLACEMENT MC SCH (08:00)
[2017-09-08] MEDS: lactobacillus rhamnosus 10,000 MMU CELLS/CAPSULE PO SCH ×2 (08:04→21:22)
[2017-09-08] MEDS: potassium chloride 10mEq ER tablet PO SCH (08:05)
[2017-09-08] MEDS: finasteride 5mg tablet PO SCH (21:22)
[2017-09-08] MEDS: atorvastatin 20mg tablet PO SCH (21:23)
[2017-09-08] MEDS: insulin glargine (Lantus) pen - multi-dose SQ SCH (21:34)
[2017-09-09] VITALS (12 sets, daily range): BP systolic 100–168; BP diastolic 50–74
[2017-09-09] MEDS: ipratropium/albuterol 3ml nebule NEB SCH ×4 (02:56→20:10)
[2017-09-09 05:05] LABS: BASOPHILS % (AUTO) 0.1 % (0-1); EOSINOPHILS # (AUTO) 0.1 X10'3 (0-0.9); EOSINOPHILS % (AUTO) 1.5 % (0-6); HEMATOCRIT 25.3 % (42.0-52.0); HEMOGLOBIN 8.6 g/dl (14.0-17.9); LYMPHOCYTES # (AUTO) 0.7 X10'3 (1.1-4.8); LYMPHOCYTES % (AUTO) 12.7 % (21-51); MEAN CORPUSCULAR HEMOGLOBIN 30.2 PG (27.0-31.0); MEAN CORPUSCULAR HGB CONC 33.8 % (33.0-36.5); MEAN CORPUSCULAR VOLUME 89.3 FL (78-98); MEAN PLATELET VOLUME 7.7 FL (7.4-10.4); MONOCYTES # (AUTO) 0.4 X10'3 (0-0.9); MONOCYTES % (AUTO) 7.2 % (2-12); NEUTROPHILS # (AUTO) 4.6 X10'3 (1.8-7.7); NEUTROPHILS % (AUTO) 78.5 % (42-75); PLATELET COUNT 147 X10'3 (140-440); RED BLOOD COUNT 2.83 X10'6 (4.70-6.10); RED CELL DISTRIBUTION WIDTH 15.2 % (11.5-14.5); WHITE BLOOD COUNT 5.9 X10'3 (4.5-11.0)
[2017-09-09 05:42] LABS: ANION GAP 3 (8-16); BLOOD UREA NITROGEN 20 MG/DL (7-18); BUN/CREATININE RATIO 34.5 (5.4-32.0); CALCIUM 8.8 MG/DL (8.5-10.1); CHLORIDE 104 MMOL/L (99-107); CREATININE 0.58 MG/DL (0.60-1.10); GLUCOSE 78 MG/DL (70-104); MAGNESIUM 2.1 MG/DL (1.5-2.4); PHOSPHORUS 2.3 MG/DL (2.3-4.5); PREALBUMIN 17.7 MG/DL (19-36); SODIUM 146 MMOL/L (135-145); TOTAL CARBON DIOXIDE 38.8 MMOL/L (24-32); eGFR > 90 ML/MIN
[2017-09-09 05:43] LABS: POTASSIUM 3.9 MMOL/L (3.5-5.1)
[2017-09-09] MEDS: dextrose ORAL solution 15 GM/59 ML bottle PO PRN (07:38)
[2017-09-09] MEDS: K and/or MAG REPLACEMENT MC SCH (08:00)
[2017-09-09] MEDS: carVEDilol 3.125mg tablet PO SCH ×2 (08:36→21:48)
[2017-09-09] MEDS: aspirin 325mg tablet PO SCH (08:36)
[2017-09-09] MEDS: pantoprazole 40mg Tablet.DR PO SCH ×2 (08:36→21:48)
[2017-09-09] MEDS: lactobacillus rhamnosus 10,000 MMU CELLS/CAPSULE PO SCH ×2 (08:36→21:48)
[2017-09-09] MEDS: predniSONE 20 mg tablet PO SCH (08:36)
[2017-09-09] MEDS: potassium chloride 10mEq ER tablet PO SCH (08:36)
[2017-09-09] MEDS: citalopram 20mg tablet PO SCH (08:36)
[2017-09-09] MEDS: albumin (human) 25% 100 ML IV solution IV SCH ×2 (08:38→21:50)
[2017-09-09] MEDS: enoxaparin 80mg/0.8ml syringe SUBCUT SCH ×2 (08:39→21:47)
[2017-09-09] MEDS ORDERED: guaiFENesin ER 600mg tablet PO ONE (10:25)
[2017-09-09] MEDS: insulin glargine (Lantus) pen - multi-dose SQ SCH (21:45)
[2017-09-09] MEDS: atorvastatin 20mg tablet PO SCH (21:48)
[2017-09-09] MEDS: finasteride 5mg tablet PO SCH (21:48)
[2017-09-09] MEDS: guaiFENesin ER 600mg tablet PO SCH (21:49)
[2017-09-10] VITALS (14 sets, daily range): BP systolic 115–183; BP diastolic 58–99
[2017-09-10] MEDS: ipratropium/albuterol 3ml nebule NEB SCH ×5 (03:30→20:47)
[2017-09-10 04:37] LABS: BASOPHILS % (AUTO) 0.1 % (0-1); EOSINOPHILS # (AUTO) 0.1 X10'3 (0-0.9); EOSINOPHILS % (AUTO) 1.3 % (0-6); HEMOGLOBIN 7.6 g/dl (14.0-17.9); LYMPHOCYTES # (AUTO) 0.7 X10'3 (1.1-4.8); LYMPHOCYTES % (AUTO) 10.9 % (21-51); MEAN CORPUSCULAR HEMOGLOBIN 30.5 PG (27.0-31.0); MEAN CORPUSCULAR HGB CONC 34.7 % (33.0-36.5); MEAN CORPUSCULAR VOLUME 87.9 FL (78-98); MEAN PLATELET VOLUME 8.1 FL (7.4-10.4); MONOCYTES # (AUTO) 0.5 X10'3 (0-0.9); NEUTROPHILS # (AUTO) 5.4 X10'3 (1.8-7.7); NEUTROPHILS % (AUTO) 80.7 % (42-75); PLATELET COUNT 132 X10'3 (140-440); RED BLOOD COUNT 2.49 X10'6 (4.70-6.10); RED CELL DISTRIBUTION WIDTH 15.2 % (11.5-14.5); WHITE BLOOD COUNT 6.7 X10'3 (4.5-11.0)
[2017-09-10 04:58] LABS: HEMATOCRIT 21.9 % (42.0-52.0)
[2017-09-10 05:18] LABS: ALBUMIN 3.3 G/DL (3.4-5.0); ANION GAP 4 (8-16); BLOOD UREA NITROGEN 17 MG/DL (7-18); BUN/CREATININE RATIO 30.4 (5.4-32.0); CALCIUM 8.7 MG/DL (8.5-10.1); CHLORIDE 103 MMOL/L (99-107); CREATININE 0.56 MG/DL (0.60-1.10); GLUCOSE 101 MG/DL (70-104); PHOSPHORUS 2.7 MG/DL (2.3-4.5); POTASSIUM 3.7 MMOL/L (3.5-5.1); SODIUM 146 MMOL/L (135-145); TOTAL CARBON DIOXIDE 39.4 MMOL/L (24-32); eGFR > 90 ML/MIN
[2017-09-10] MEDS: potassium chloride 10mEq ER tablet PO SCH (08:00)
[2017-09-10] MEDS: carVEDilol 3.125mg tablet PO SCH ×2 (08:00→20:00)
[2017-09-10] MEDS: pantoprazole 40mg Tablet.DR PO SCH ×2 (08:00→20:01)
[2017-09-10] MEDS: enoxaparin 80mg/0.8ml syringe SUBCUT SCH (08:00)
[2017-09-10] MEDS: predniSONE 20 mg tablet PO SCH (08:00)
[2017-09-10] MEDS: guaiFENesin ER 600mg tablet PO SCH ×2 (08:00→20:00)
[2017-09-10] MEDS: K and/or MAG REPLACEMENT MC SCH (08:00)
[2017-09-10] MEDS: lactobacillus rhamnosus 10,000 MMU CELLS/CAPSULE PO SCH ×2 (08:00→20:00)
[2017-09-10] MEDS: citalopram 20mg tablet PO SCH (08:00)
[2017-09-10] MEDS: albumin (human) 25% 100 ML IV solution IV SCH (08:00)
[2017-09-10] MEDS: aspirin 325mg tablet PO SCH (08:30)
[2017-09-10] MEDS ORDERED: acetaminophen 325mg tablet PO ONE (10:50)
[2017-09-10] MEDS ORDERED: furosemide 40mg/4ml inj IV ONE (12:50)
[2017-09-10] MEDS: finasteride 5mg tablet PO SCH (20:00)
[2017-09-10] MEDS: atorvastatin 20mg tablet PO SCH (20:00)
[2017-09-10] MEDS: rivaroxaban 20mg tablet PO SCH (23:39)
[2017-09-11 03:00] VITALS: BP 145/72
[2017-09-11] MEDS: ipratropium/albuterol 3ml nebule NEB SCH ×2 (03:08→09:36)
[2017-09-11 05:42] LABS: BASOPHILS % (AUTO) 0 % (0-1); EOSINOPHILS # (AUTO) 0.3 X10'3 (0-0.9); HEMATOCRIT 24.6 % (42.0-52.0); HEMOGLOBIN 8.4 g/dl (14.0-17.9); LYMPHOCYTES # (AUTO) 0.9 X10'3 (1.1-4.8); LYMPHOCYTES % (AUTO) 7.6 % (21-51); MEAN CORPUSCULAR HEMOGLOBIN 30.4 PG (27.0-31.0); MEAN CORPUSCULAR HGB CONC 34.3 % (33.0-36.5); MEAN CORPUSCULAR VOLUME 88.5 FL (78-98); MEAN PLATELET VOLUME 8.4 FL (7.4-10.4); MONOCYTES # (AUTO) 0.7 X10'3 (0-0.9); MONOCYTES % (AUTO) 5.6 % (2-12); NEUTROPHILS # (AUTO) 10.5 X10'3 (1.8-7.7); NEUTROPHILS % (AUTO) 84.8 % (42-75); PLATELET COUNT 131 X10'3 (140-440); RED BLOOD COUNT 2.78 X10'6 (4.70-6.10); RED CELL DISTRIBUTION WIDTH 15.1 % (11.5-14.5); WHITE BLOOD COUNT 12.4 X10'3 (4.5-11.0)
[2017-09-11 05:58] LABS: ALBUMIN 3.3 G/DL (3.4-5.0); ANION GAP -2 (8-16); BLOOD UREA NITROGEN 19 MG/DL (7-18); BUN/CREATININE RATIO 32.8 (5.4-32.0); CALCIUM 8.3 MG/DL (8.5-10.1); CHLORIDE 99 MMOL/L (99-107); CREATININE 0.58 MG/DL (0.60-1.10); GLUCOSE 128 MG/DL (70-104); PHOSPHORUS 3.4 MG/DL (2.3-4.5); POTASSIUM 3.6 MMOL/L (3.5-5.1); SODIUM 139 MMOL/L (135-145); eGFR > 90 ML/MIN
[2017-09-11 06:26] LABS: TOTAL CARBON DIOXIDE 41.6 MMOL/L (24-32)
[2017-09-11 07:00] VITALS: BP 120/67
[2017-09-11] MEDS: K and/or MAG REPLACEMENT MC SCH (08:00)
[2017-09-11] MEDS ORDERED: loratadine 10mg tablet PO SCH (08:00)
[2017-09-11] MEDS: carVEDilol 3.125mg tablet PO SCH (08:26)
[2017-09-11] MEDS: lactobacillus rhamnosus 10,000 MMU CELLS/CAPSULE PO SCH (08:26)
[2017-09-11] MEDS: guaiFENesin ER 600mg tablet PO SCH (08:26)
[2017-09-11] MEDS: potassium chloride 10mEq ER tablet PO SCH (08:26)
[2017-09-11] MEDS: citalopram 20mg tablet PO SCH (08:27)
[2017-09-11] MEDS: pantoprazole 40mg Tablet.DR PO SCH (08:27)
[2017-09-11] MEDS: predniSONE 20 mg tablet PO SCH (08:27)
[2017-09-11 11:00] VITALS: BP 148/100
== END 2017-09-11 13:15 | DRG 166 ==
LOC: ER 17:45 → ED HOLD 22:46 → EDBEDREQ 08-23 12:40 → ORTHO 4S 08-23 13:16 → CICU 2S 08-23 19:23 → PCU 3S 09-04 14:45
PROVIDERS: ADMIT Internal Medicine; ATTEND Family Medicine
PROC: 5A1945Z Respiratory Ventilation, 24-96 Consecutive Hours (ICD-10-PCS; 2017-08-23)
PROC: 0BH17EZ Insertion of Endotracheal Airway into Trachea, Via Natural or Artificial Opening (ICD-10-PCS; 2017-08-23)
PROC: 4A00X4Z Measurement of Central Nervous Electrical Activity, External Approach (ICD-10-PCS; 2017-08-27)
PROC: 5A1955Z Respiratory Ventilation, Greater than 96 Consecutive Hours (ICD-10-PCS; 2017-08-29)
PROC: 0BH17EZ Insertion of Endotracheal Airway into Trachea, Via Natural or Artificial Opening (ICD-10-PCS; 2017-08-29)
PROC: 02HV33Z Insertion of Infusion Device into Superior Vena Cava, Percutaneous Approach (ICD-10-PCS; 2017-08-29)
PROC: 0WCQ8ZZ Extirpation of Matter from Respiratory Tract, Via Natural or Artificial Opening Endoscopic (ICD-10-PCS; principal; 2017-08-30)
PROC: 0DJ08ZZ Inspection of Upper Intestinal Tract, Via Natural or Artificial Opening Endoscopic (ICD-10-PCS; 2017-09-02)
PROC: 5A09357 Assistance with Respiratory Ventilation, Less than 24 Consecutive Hours, Continuous Positive Airway Pressure (ICD-10-PCS; 2017-09-02)
PROC: 5A1935Z Respiratory Ventilation, Less than 24 Consecutive Hours (ICD-10-PCS; 2017-09-02)
PROC: 5A09457 Assistance with Respiratory Ventilation, 24-96 Consecutive Hours, Continuous Positive Airway Pressure (ICD-10-PCS; 2017-09-06)
PROC: 02HV33Z Insertion of Infusion Device into Superior Vena Cava, Percutaneous Approach (ICD-10-PCS; 2017-09-06)
PROC: 5A09357 Assistance with Respiratory Ventilation, Less than 24 Consecutive Hours, Continuous Positive Airway Pressure (ICD-10-PCS; 2017-09-09)
PROC: 5A09357 Assistance with Respiratory Ventilation, Less than 24 Consecutive Hours, Continuous Positive Airway Pressure (ICD-10-PCS; 2017-09-10)
PROC: 30233N1 Transfusion of Nonautologous Red Blood Cells into Peripheral Vein, Percutaneous Approach (ICD-10-PCS; 2017-09-10)
PROC: 5A09357 Assistance with Respiratory Ventilation, Less than 24 Consecutive Hours, Continuous Positive Airway Pressure (ICD-10-PCS; 2017-09-11)
DX: J96.01 Acute respiratory failure with hypoxia (principal); J69.0 Pneumonitis due to inhalation of food and vomit; J44.0 Chronic obstructive pulmonary disease with (acute) lower respiratory infection; I11.0 Hypertensive heart disease with heart failure; K29.71 Gastritis, unspecified, with bleeding; I95.9 Hypotension, unspecified; I48.2 Chronic atrial fibrillation; I49.5 Sick sinus syndrome; I50.9 Heart failure, unspecified; E11.9 Type 2 diabetes mellitus without complications; D50.0 Iron deficiency anemia secondary to blood loss (chronic); K29.81 Duodenitis with bleeding; J44.1 Chronic obstructive pulmonary disease with (acute) exacerbation; J96.02 Acute respiratory failure with hypercapnia; I65.23 Occlusion and stenosis of bilateral carotid arteries; N40.0 Benign prostatic hyperplasia without lower urinary tract symptoms; F32.9 Major depressive disorder, single episode, unspecified; E78.5 Hyperlipidemia, unspecified; I25.10 Atherosclerotic heart disease of native coronary artery without angina pectoris; F10.20 Alcohol dependence, uncomplicated; F40.240 Claustrophobia; I70.0 Atherosclerosis of aorta; Z66 Do not resuscitate; Z53.9 Procedure and treatment not carried out, unspecified reason; Z88.8 Allergy status to other drugs, medicaments and biological substances; Z78.1 Physical restraint status; Z79.01 Long term (current) use of anticoagulants; Z87.891 Personal history of nicotine dependence; Z86.73 Personal history of transient ischemic attack (TIA), and cerebral infarction without residual deficits; Z82.3 Family history of stroke
CPT/HCPCS: 36415; 36569; 36600; 70450; 70544; 70551; 71045; 71250; 71275; 74018; 76937; 80048; 80053; 80061; 82272; 82550; 82803; 82948; 83036; 83605; 83735; 83880; 84100; 84132; 84134; 84145; 84484; 85018; 85025; 85379; 85610; 85651; 85730; 86885; 86900; 86901; 86920; 87040; 87070; 92616; 92950; 93005; 93306; 93880; 93971; 94002; 94003; 94640; 94660; 94667; 94668; 94760; 95816; 96360; 96361; 97110; 97116; 97161; 97530; 99285; A4315; A4353; A4620; A6212; A6213; A6223; A6250; A6251; A6257; A6258; C1751; C1758; C9113; G0500; J0171; J0360; J0690; J0692; J1265; J1630; J1650; J1815; J1940; J2020; J2060; J2250; J2270; J2543; J2704; J2920; J2930; J3010; J3411; J3430; J3480; J3490; J7030; J7060; J7512; P9016; P9047; Q9967

== ENCOUNTER 2017-09-12 15:18 | Inpatient (IN) | payer MEDICARE, OTHER ==
[~2017-09-12] VITALS: Ht 177.8 cm; Wt 78.2 kg
[~2017-09-12 15:18] MED LIST changes: -0.9 % SODIUM CHLORIDE 10 ML VIAL ONE; +ATOR40TA3 PO; +CARV-50 PO; +CITA20TA11 PO; +DUTA0.5C40 PO; +FLUT1AER INH; +RIVA20TA PO; +UMEC62.5 INH; +VALS1TAB77 PO; -epiNEPHrine 0.1mg/ml 10ml syringe ONE; -etomidate 2mg/ml inj. ONE; -rocuronium 10mg/ml inj IV ONE; -sodium bicarbonate (8.4%) 1 mEq/ml syringe ONE
[2017-09-12] MEDS ORDERED: normal saline 1000ML IV soln IV ONE (15:25)
[2017-09-12 15:46] LABS: ABG BASE EXCESS 15.2 mmol/L (-2.0-3.0); ABG OXYGEN SATURATION 97.9 % (95-98); ABG PCO2 (T) 124.7 mmHg (35.0-48.0); ABG PH (T) 7.185 (7.350-7.450); ABG PO2 (T) 139.8 mmHg (83-108); FCOHb 0.6 % (0.5-1.5); FLOW 10 L/min; FMetHb 0.2 % (0.3-1.12); FO2Hb 97.1 % (94-100); TOTAL HEMOGLOBIN 7.9 G/dl (14.0-18.0)
[2017-09-12 16:17] LABS: BASOPHILS % (AUTO) 0 % (0-1); EOSINOPHILS % (AUTO) 0 % (0-6); HEMOGLOBIN 7.3 g/dl (14.0-17.9); LYMPHOCYTES # (AUTO) 0.3 X10'3 (1.1-4.8); LYMPHOCYTES % (AUTO) 1.8 % (21-51); MEAN CORPUSCULAR HEMOGLOBIN 30.2 PG (27.0-31.0); MEAN CORPUSCULAR HGB CONC 33.9 % (33.0-36.5); MEAN CORPUSCULAR VOLUME 89.2 FL (78-98); MEAN PLATELET VOLUME 8.4 FL (7.4-10.4); MONOCYTES # (AUTO) 0.1 X10'3 (0-0.9); MONOCYTES % (AUTO) 0.8 % (2-12); NEUTROPHILS # (AUTO) 17.3 X10'3 (1.8-7.7); NEUTROPHILS % (AUTO) 97.4 % (42-75); PLATELET COUNT 201 X10'3 (140-440); RED CELL DISTRIBUTION WIDTH 15.5 % (11.5-14.5); WHITE BLOOD COUNT 17.8 X10'3 (4.5-11.0)
[2017-09-12 16:23] LABS: HEMATOCRIT 21.4 % (42.0-52.0)
[2017-09-12 16:51] LABS: ALANINE AMINOTRANSFERASE 63 U/L (12-78); ALBUMIN 3.6 G/DL (3.4-5.0); ALBUMIN/GLOBULIN RATIO 1.4 (1.1-1.5); ALKALINE PHOSPHATASE 62 IU/L (46-116); ANION GAP 2 (8-16); ASPARTATE AMINO TRANSFERASE 30 U/L (10-37); BILIRUBIN,TOTAL 0.8 MG/DL (0.1-1.0); BLOOD UREA NITROGEN 31 MG/DL (7-18); BUN/CREATININE RATIO 39.2 (5.4-32.0); CHLORIDE 99 MMOL/L (99-107); CREATININE 0.79 MG/DL (0.60-1.10); GLUCOSE 116 MG/DL (70-104); MAGNESIUM 2.1 MG/DL (1.5-2.4); PHOSPHORUS 4.8 MG/DL (2.3-4.5); POTASSIUM 4.8 MMOL/L (3.5-5.1); SODIUM 138 MMOL/L (135-145); TOTAL CARBON DIOXIDE 36.9 MMOL/L (24-32); TOTAL PROTEIN 6.2 G/DL (6.4-8.2); eGFR > 90 ML/MIN
[2017-09-12] MEDS ORDERED: cefepime 1GM/NS ADD-VANTAGE 100 ML IV ONE (17:10)
[2017-09-12] MEDS ORDERED: azithromycin/NS 500mg/250ml 250 ML IV ONE (17:10)
[2017-09-12 17:20] LABS: PARTIAL THROMBOPLASTIN TIME 27 SECONDS (22-32); PROTHROMBIN TIME 10.1 SECONDS (9.0-12.0)
[2017-09-12 17:55] LABS: ABG BASE EXCESS 11.6 mmol/L (-2.0-3.0); ABG OXYGEN SATURATION 96.6 % (95-98); ABG PCO2 (T) 65.3 mmHg (35.0-48.0); ABG PH (T) 7.381 (7.350-7.450); ABG PO2 (T) 89.5 mmHg (83-108); FCOHb 0.8 % (0.5-1.5); FMetHb 0.1 % (0.3-1.12); FO2Hb 95.7 % (94-100); MINUTE VOLUME 14 L/min; PATIENT TEMPERATURE 36.4; RESPIRATORY RATE 24 b/min; RESPIRATORY RATE (OBSERVED) 24 b/min; TOTAL HEMOGLOBIN 6.7 G/dl (14.0-18.0)
[2017-09-12 18:32] VITALS: BP 84/50
[2017-09-12 18:47] VITALS: BP 103/84
[2017-09-12 19:40] VITALS: BP 89/40
[2017-09-12] MEDS ORDERED: magnesium hydroxide 30ml (MOM) UD suspension PO PRN (20:00)
[2017-09-12] MEDS ORDERED: magnesium 4gm in 100ml NS 100 ML IV PRN (20:00)
[2017-09-12] MEDS ORDERED: potassium Cl 20 mEq SR tablet PO PRN ×2 (20:00)
[2017-09-12] MEDS ORDERED: ipratropium/albuterol 3ml nebule NEB PRN (20:00)
[2017-09-12] MEDS ORDERED: acetaminophen 325mg tablet PO PRN ×2 (20:00)
[2017-09-12] MEDS ORDERED: magnesium 2GM in 50ml NS 50 ML IV PRN (20:00)
[2017-09-12] MEDS ORDERED: ondansetron/PF 4mg/2ml inj IV PRN (20:00)
[2017-09-12] MEDS ORDERED: potassium Cl 40MEQ/NS 500ml 500 ML IV PRN ×2 (20:00)
[2017-09-12] MEDS ORDERED: magnesium Cl slow-release 64mg tablet PO PRN (20:00)
[2017-09-12] MEDS ORDERED: mag hydrox/Alum hydrox/simeth 30ml oral suspension PO PRN (20:00)
[2017-09-12 21:07] LABS: CLARITY,URINE Clear (Clear); COLOR,URINE Yellow (Yellow); GLUCOSE, URINE Negative (Neg); KETONES,URINE Negative (Neg); LEUKOCYTE ESTERASE ,URINE Trace (Neg); NITRITES, URINE Negative (Neg); OCCULT BLOOD,URINE Trace (Neg); PROTEIN,URINE Trace mg/dl (Neg)
[2017-09-12 21:10] LABS: UA COLLECTION TYPE CLN CATCH MIDSTREAM
[2017-09-12 21:13] LABS: RBC,URINE 0-2 /HPF (0-2); WBC,URINE 0-4 /HPF (0-4)
[2017-09-12 21:14] LABS: BACTERIA,URINE FEW /HPF (Neg); HYALINE CASTS 0-3 /LPF (NEGATIVE); SQUAMOUS EPITHELIAL CELL,UR FEW /LPF (FEW)
[2017-09-12] MEDS ORDERED: normal saline 1000ML IV soln IVB ONE (22:10)
[2017-09-12 23:07] LABS: BASOPHILS # (AUTO) 0.2 X10'3 (0-0.2); BASOPHILS % (AUTO) 1.4 % (0-1); EOSINOPHILS % (AUTO) 0 % (0-6); LYMPHOCYTES # (AUTO) 0.3 X10'3 (1.1-4.8); LYMPHOCYTES % (AUTO) 2.4 % (21-51); MEAN CORPUSCULAR HEMOGLOBIN 29.7 PG (27.0-31.0); MEAN CORPUSCULAR HGB CONC 33.8 % (33.0-36.5); MEAN PLATELET VOLUME 8.8 FL (7.4-10.4); MONOCYTES # (AUTO) 0.6 X10'3 (0-0.9); MONOCYTES % (AUTO) 4.9 % (2-12); NEUTROPHILS # (AUTO) 10.8 X10'3 (1.8-7.7); NEUTROPHILS % (AUTO) 91.3 % (42-75); PLATELET COUNT 150 X10'3 (140-440); RED BLOOD COUNT 2.29 X10'6 (4.70-6.10); RED CELL DISTRIBUTION WIDTH 15.5 % (11.5-14.5); WHITE BLOOD COUNT 11.9 X10'3 (4.5-11.0)
[2017-09-12 23:13] LABS: HEMOGLOBIN 6.8 g/dl (14.0-17.9)
[2017-09-12 23:14] LABS: HEMATOCRIT 20.2 % (42.0-52.0)
[2017-09-13] VITALS (16 sets, daily range): BP systolic 75–133; BP diastolic 37–118
[2017-09-13] MEDS ORDERED: cefepime 1GM/NS ADD-VANTAGE 100 ML IV SCH
[2017-09-13] MEDS: ipratropium/albuterol 3ml nebule NEB SCH ×5 (00:25→23:00)
[2017-09-13 04:23] LABS: BASOPHILS % (AUTO) 0 % (0-1); EOSINOPHILS # (AUTO) 0.2 X10'3 (0-0.9); EOSINOPHILS % (AUTO) 1.4 % (0-6); LYMPHOCYTES # (AUTO) 0.4 X10'3 (1.1-4.8); LYMPHOCYTES % (AUTO) 3.3 % (21-51); MEAN CORPUSCULAR HGB CONC 34.1 % (33.0-36.5); MEAN CORPUSCULAR VOLUME 88.1 FL (78-98); MEAN PLATELET VOLUME 8.7 FL (7.4-10.4); MONOCYTES # (AUTO) 0.7 X10'3 (0-0.9); MONOCYTES % (AUTO) 5.9 % (2-12); NEUTROPHILS # (AUTO) 11.2 X10'3 (1.8-7.7); NEUTROPHILS % (AUTO) 89.4 % (42-75); PLATELET COUNT 148 X10'3 (140-440); RED BLOOD COUNT 2.34 X10'6 (4.70-6.10); RED CELL DISTRIBUTION WIDTH 15.6 % (11.5-14.5); WHITE BLOOD COUNT 12.5 X10'3 (4.5-11.0)
[2017-09-13 04:27] LABS: HEMATOCRIT 20.6 % (42.0-52.0)
[2017-09-13 04:39] LABS: ALANINE AMINOTRANSFERASE 53 U/L (12-78); ALBUMIN 2.9 G/DL (3.4-5.0); ALBUMIN/GLOBULIN RATIO 1.2 (1.1-1.5); ALKALINE PHOSPHATASE 53 IU/L (46-116); ANION GAP 2 (8-16); ASPARTATE AMINO TRANSFERASE 28 U/L (10-37); BILIRUBIN,TOTAL 0.8 MG/DL (0.1-1.0); BLOOD UREA NITROGEN 32 MG/DL (7-18); CALCIUM 8.4 MG/DL (8.5-10.1); CHLORIDE 103 MMOL/L (99-107); GLUCOSE 82 MG/DL (70-104); MAGNESIUM 1.9 MG/DL (1.5-2.4); POTASSIUM 4.6 MMOL/L (3.5-5.1); SODIUM 143 MMOL/L (135-145); TOTAL PROTEIN 5.3 G/DL (6.4-8.2); eGFR > 90 ML/MIN
[2017-09-13] MEDS ORDERED: DOPamine 400mg/D5W 250ml 250 ML IV SCH ×2 (07:40→07:54)
[2017-09-13] MEDS ORDERED: K and/or MAG REPLACEMENT MC SCH (08:00)
[2017-09-13] MEDS ORDERED: citalopram 20mg tablet PO SCH (08:00)
[2017-09-13] MEDS ORDERED: azithromycin 250mg tablet PO SCH (08:00)
[2017-09-13] MEDS ORDERED: oseltamivir phos 75mg capsule PO SCH (08:00)
[2017-09-13] MEDS ORDERED: DEXTROSE 5% IV SCH (09:26)
[2017-09-13] MEDS ORDERED: WATER IV SCH (09:26)
[2017-09-13] MEDS ORDERED: CEFEPIME IV SCH (09:26)
[2017-09-13] MEDS ORDERED: pantoprazole 40mg Tablet.DR PO SCH (09:35)
[2017-09-13] MEDS ORDERED: morphine 10mg/0.5ml (conc. morphine) oral syringe PO PRN (17:55)
[2017-09-13] MEDS ORDERED: morphine 4 MG/ML inj SYRINge IV PRN ×2 (17:55)
[2017-09-13] MEDS ORDERED: Protein Smoothie (high protein) 240ml (8oz) cup PO SCH (18:00)
[2017-09-13] MEDS ORDERED: furosemide 20 MG/2 ML vial IV ONE (18:05)
[2017-09-13] MEDS: morphine 4 MG/ML inj SYRINge IV PRN ×4 (19:39→23:07)
[2017-09-14] MEDS ORDERED: LORazepam 2 mg/ml vial IV PRN (00:25)
[2017-09-14] MEDS: morphine 4 MG/ML inj SYRINge IV PRN (00:26)
[2017-09-14] MEDS ORDERED: vancomycin/NS 1 GM ADD-VANTAGE 250 ML IV SCH (05:00)
[2017-09-15] MEDS ORDERED: VANCOMYCIN LEVEL IV ONE (04:30)
== END 2017-09-14 02:10 | disposition expired | DRG 193 ==
LOC: ER 15:19 → ED HOLD 19:57 → PCU 3S 09-13 07:30
PROVIDERS: ADMIT Family Medicine; ATTEND Internal Medicine
PROC: 5A09457 Assistance with Respiratory Ventilation, 24-96 Consecutive Hours, Continuous Positive Airway Pressure (ICD-10-PCS; principal; 2017-09-12)
PROC: 30233N1 Transfusion of Nonautologous Red Blood Cells into Peripheral Vein, Percutaneous Approach (ICD-10-PCS; 2017-09-12)
PROC: 02HV33Z Insertion of Infusion Device into Superior Vena Cava, Percutaneous Approach (ICD-10-PCS; 2017-09-13)
DX: J10.1 Influenza due to other identified influenza virus with other respiratory manifestations (principal); J96.22 Acute and chronic respiratory failure with hypercapnia; J96.21 Acute and chronic respiratory failure with hypoxia; I48.91 Unspecified atrial fibrillation; I11.0 Hypertensive heart disease with heart failure; I50.9 Heart failure, unspecified; D50.0 Iron deficiency anemia secondary to blood loss (chronic); E11.9 Type 2 diabetes mellitus without complications; I49.5 Sick sinus syndrome; J44.9 Chronic obstructive pulmonary disease, unspecified; D72.829 Elevated white blood cell count, unspecified; E78.5 Hyperlipidemia, unspecified; I25.10 Atherosclerotic heart disease of native coronary artery without angina pectoris; N40.0 Benign prostatic hyperplasia without lower urinary tract symptoms; Z51.5 Encounter for palliative care; Z66 Do not resuscitate; Z88.8 Allergy status to other drugs, medicaments and biological substances; Z79.899 Other long term (current) drug therapy; Z79.01 Long term (current) use of anticoagulants; Z86.73 Personal history of transient ischemic attack (TIA), and cerebral infarction without residual deficits
CPT/HCPCS: 36415; 36569; 36600; 71045; 76937; 80053; 81001; 82803; 83605; 83735; 83880; 84100; 84145; 84484; 85018; 85025; 85610; 85730; 86885; 86900; 86901; 86920; 87040; 87088; 87502; 87503; 93005; 94640; 94660; 94760; 96360; 96361; 99285; A4315; A6213; J0456; J0692; J1265; J1940; J2270; J3370; J7030; J7070; P9016